=== PATIENT | female | born 1965 | race Caucasian/White ===

== ENCOUNTER 2019-04-29 08:42 | Inpatient (IN) | payer OTHER ==
[2019-04-24 11:20] VITALS: BMI 36.7
[2019-04-29] MEDS ORDERED: THROMBIN (BOVINE) 5,000 UNIT VIAL TP ONE ×2 (13:53→18:11)
[2019-04-29] MEDS ORDERED: HEPARIN NA (PORCINE) 5,000 UNITS/ML 1ML VIAL ONE (13:53)
[2019-04-29] MEDS ORDERED: PROPOFOL 20 ML ONE ×4 (15:58→16:00)
[2019-04-29] MEDS ORDERED: PROMETHAZINE HCL 25 MG/1 ML VIAL IVPB PRN (16:01)
[2019-04-29] MEDS ORDERED: DEXAMETHASONE SOD PHOSPHATE 4 MG/1 ML VIAL IVPUSH PRN (16:01)
[2019-04-29] MEDS ORDERED: PROMETHAZINE HCL 25 MG/1 ML VIAL IVPUSH PRN (16:01)
[2019-04-29] MEDS ORDERED: ONDANSETRON 4 MG/2 ML VIAL IVPUSH PRN ×2 (16:01→20:41)
[2019-04-29] MEDS ORDERED: MIDAZOLAM HCL 2 MG/2 ML SINGLE DOSE VIAL ONE ×2 (16:20)
[2019-04-29] MEDS ORDERED: fentaNYL CITRATE 250 MCG/5 ML VIAL ONE ×2 (16:20)
[2019-04-29] MEDS ORDERED: ONDANSETRON 4 MG/2 ML VIAL ONE (16:29)
[2019-04-29] MEDS ORDERED: DEXAMETHASONE SOD PHOSPHATE 4 MG/1 ML VIAL ONE (16:29)
[2019-04-29] MEDS ORDERED: TRANEXAMIC ACID 1000 MG/10 ML VIAL ONE (16:31)
[2019-04-29] MEDS ORDERED: ceFAZolin SODIUM 1 GM VIAL ONE ×3 (16:31→19:47)
[2019-04-29] MEDS ORDERED: VANCOMYCIN 1,000 MG VIAL (RESTRICTED TO ID ONLY) IVPB ONE (16:43)
[2019-04-29] MEDS ORDERED: ceFAZolin SODIUM 1 GM VIAL IVPB ONE ×2 (16:43→17:40)
[2019-04-29] MEDS ORDERED: MINERAL OIL/PETROLATUM,WHITE 3.5 GM TUBE ONE (17:04)
[2019-04-29] MEDS ORDERED: ROCURONIUM BROMIDE 50 MG/5 ML SYRINGE ONE (17:05)
[2019-04-29] MEDS ORDERED: NEOSTIGMINE METHYLSULFATE 0.5 MG/1 ML - 10 ML MDV ONE (17:45)
[2019-04-29] MEDS ORDERED: GELATIN, ABSORBABLE 100 EACH SPONGE TP ONE (18:12)
[2019-04-29] MEDS ORDERED: BUPIVACAINE LIPOSOME/PF (EXPAREL) 266 MG/20 ML VIAL ONE (18:52)
[2019-04-29] MEDS ORDERED: BUPIVACAINE HCL/PF 0.25% (2.5MG/ML) 10 ML VIAL ONE (18:56)
[2019-04-29] MEDS ORDERED: GLYCOPYRROLATE 0.2 MG/1 ML VIAL ONE ×4 (19:02→20:45)
--- NOTE | 2019-04-29 19:17 | OP ---
Operative Note - Note: Operative Date: 04/29/19 Pre-Operative Diagnosis: 1. 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 2. L4-S1 spinal stenosis with neurogenic claudication. 3. Multilevel axial lumbar segmental instability. Severity of illness: 4. Operation: 1. L4, L5, S1 bilateral laminectomies & osteotomies (facetectomies). 2. L4-L5, L5-S1 posterior lumbar interbody fusion. 3. L4-S1 posterior instrumentation. 4. L4-S1 posterolateral arthrodesis. 5. Bone allograft. 6. Bone autograft. 7. Bone marrow aspiration. 8. Complex wound closure (20cm) Implants: Cages: Fortilink Tetrafuse. L4-L5: 13mm. L5-S1: 11mm. Screws: Precision Spine Reform. Rods x 2, Cross-Link x 1. Post-Operative Diagnosis: Same as Pre-op Surgeon: Jarad Moise Microstrategy Developer: Juno Moise Anesthesiologist/STEEL PLATE PRINTER: Melissa Padilla Anesthesia: General Specimens Removed: L4-L5, L5-S1 discs Estimated Blood Loss (mls): 500 Blood Volume Replaced (mls): 250 (Cell Saver) Fluid Volume Replaced (mls): 2,700 (Crystalloid) Operative Report Dictated: Yes
--- NOTE | 2019-04-29 19:17 | PN ---
Progress Note (short form) - Note Progress Note: 54F s/p L4-L5, L5-S1 bilateral laminectomies; bilateral L4-L5, L5-S1 facetectomies; L4-L5, L5-S1 PLIF w/L4-S1 posterior instrumented spinal fusion POD #0. -Admit to ICU post-op. -NPO until flatus. -Pain control: NO NSAID's; OK to use WEB MARKETING MANAGER if needed; transition to oral analgesia post-op. -DVT PPx: -Mechanical only: JOSE MIGUEL's, SCD's. -Chemical: None. -Incentive spirometry q15 min. -[place] care; d/c when ambulating. -Post-op Ancef x 3 doses. -PT/OT/Rehab, OOB. -WBAT B/L LE. -No bending, lifting (>5 lbs), or twisting for 9-12 months. -Care per ICU & medical hospitalist teams. -Discharge planning: f/u 7-10 days after rehab discharge at [facility]; call for appointment; . -Will follow. Jarad Moise MD (Orthopaedic Surgery).
[2019-04-29] MEDS ORDERED: HYDROmorphone *PCA* 10MG/50ML DISP.SYRIN ONE (19:54)
[2019-04-29] MEDS ORDERED: BUPIVACAINE LIPOSOME/PF (EXPAREL) 266 MG/20 ML VIAL IJ ONE (20:20)
[2019-04-29] MEDS ORDERED: BUPIVACAINE HCL/PF 0.25% (2.5MG/ML) 10 ML VIAL IJ ONE (20:20)
[2019-04-29] MEDS ORDERED: ALBUTEROL SO4 8 GM HFA INHALER IH PRN (20:40)
[2019-04-29] MEDS ORDERED: diazePAM CARPU-JECT 10 MG/2 ML DISP.SYRIN IVPUSH PRN (20:41)
[2019-04-29] MEDS ORDERED: oxyCODONE HCL 5 MG TABLET PO PRN ×2 (20:41)
[2019-04-29] MEDS ORDERED: ACETAMINOPHEN INJECTION 100 ML IVPB ONE (20:53)
[2019-04-29] MEDS ORDERED: HYDROmorphone *PCA* 10MG/50ML DISP.SYRIN PCA ONE (21:10)
[2019-04-29] MEDS ORDERED: ACETAMINOPHEN 1000 MG/100 ML VIAL (NON FORMULARY) IVPB ONE (21:22)
--- NOTE | 2019-04-29 21:45 | OP ---
DATE OF OPERATION: 04/29/2019 SURGEON: Jarad Moise MD LENDING ACTIVITIES SUPERVISOR: Juno Moise MD PREOPERATIVE DIAGNOSIS: Disk prolapse at L4-5, L5-S1 with associated spinal stenosis and segmental instability. POSTOPERATIVE DIAGNOSIS: Disk prolapse at L4-5, L5-S1 with associated spinal stenosis and segmental instability. OPERATION PERFORMED: 1. Bilateral laminectomies, L4-5. 2. L4-5, L5 posterior lumbar interbody fusion. 3. Insertion of cage L4-5, L5-S1. 4. Posterolateral arthrodesis, L4, L5, S1. 5. Pedicle screw instrumentation, L4, L5, S1. 6. Use of biplanar fluoroscopy and intraoperative neuromonitoring. 7. Use of bone marrow aspirate concentrate. ANESTHESIA: General. ANTIBIOTICS GIVEN: Kefzol 2 g, vancomycin 1 g preoperative; Kefzol 1 g given intraoperatively. BLOOD LOSS: 500 mL; 200 mL of Cell Saver given back to patient. Please refer to [facility] for the rest of this dictation. Jarad Moise MD [id number]
[2019-04-29] MEDS: HYDROmorphone *PCA* 10MG/50ML DISP.SYRIN PCA SCH (23:30)
[2019-04-29] MEDS: LACTATED RINGERS SOLUTION 1,000 ML IV SCH (23:34)
--- NOTE | 2019-04-30 00:37 | CONSULT ---
Consultation: REQUESTING PROVIDER: CONSULT REQUEST: We have been asked to medically evaluate this patient for post op critical care management. HISTORY OF PRESENT ILLNESS: This is a 54 year old female with PMH significant for asthma,atherosclerosis, and DM. She has been brought to the ICU s/p L4-L5, L5-S1 bilateral laminectomies ; bilateral L4-L5, L5-S1 facetectomies; L4-L5, L5-S1 PLIF w/L4-S1 posterior instrumented spinal fusion POD #0. Patient is currently obtunded and unable to answer questions. REVIEW OF SYSTEMS: CONSTITUTIONAL: Absent: fever, chills, diaphoresis, generalized weakness, malaise, loss of appetite, weight change HEENT: Absent: rhinorrhea, nasal congestion, throat pain, throat swelling, difficulty swallowing, mouth swelling, ear pain, eye pain, visual changes CARDIOVASCULAR: Absent: chest pain, syncope, palpitations, irregular heart rate, lightheadedness , peripheral edema RESPIRATORY: Absent: cough, shortness of breath, dyspnea with exertion, orthopnea, wheezing, stridor, hemoptysis GASTROINTESTINAL: Absent: abdominal pain, abdominal distension, nausea, vomiting, diarrhea, constipation, melena, hematochezia GENITOURINARY: Absent: dysuria, frequency, urgency, hesitancy, hematuria, flank pain, genital pain MUSCULOSKELETAL: Absent: myalgia, arthralgia, joint swelling, back pain, neck pain SKIN: Absent: rash, itching, pallor HEMATOLOGIC/IMMUNOLOGIC: Absent: easy bleeding, easy bruising, lymphadenopathy, frequent infections ENDOCRINE: Absent: unexplained weight gain, unexplained weight loss, heat intolerance, cold intolerance NEUROLOGIC: Absent: headache, focal weakness or paresthesias, dizziness, unsteady gait, seizure, mental status changes, bladder or bowel incontinence PSYCHIATRIC: Absent: anxiety, depression, suicidal or homicidal ideation, hallucinations. PHYSICAL EXAMINATION Vital Signs - 24 hr 04/29/19 04/29/19 04/29/19 10:10 10:40 20:57 Temperature 98.5 F 98.6 F Pulse Rate 88 110 H Respiratory 16 16 Rate Blood Pressure 129/70 99/68 O2 Sat by Pulse 100 97 Oximetry (%) 04/29/19 04/29/19 04/29/19 21:15 21:30 21:45 Temperature Pulse Rate 97 H 103 H 99 H Respiratory 16 16 16 Rate Blood Pressure 94/56 L 90/50 L 105/54 L O2 Sat by Pulse 97 96 100 Oximetry (%) 04/29/19 04/29/19 04/29/19 21:59 22:00 22:15 Temperature 98.0 F Pulse Rate 95 H 105 H 96 H Respiratory 16 7 L 16 Rate Blood Pressure 111/81 111/81 111/80 O2 Sat by Pulse 100 100 98 Oximetry (%) 04/29/19 04/29/19 04/30/19 22:30 23:00 00:00 Temperature 98.1 F Pulse Rate 112 H 115 H 112 H Respiratory 8 L 8 L 10 Rate Blood Pressure 103/56 L 105/89 98/73 O2 Sat by Pulse 100 98 Oximetry (%) GENERAL: AOx0, drowsy, intermittently responsive to verbal stimulus HEAD: Normal with no signs of trauma. EYES: ANNMARIE, EOMI LUNGS: Clear B/L HEART: RRR ABDOMEN: Soft, nontender, not distended LOWER EXTREMITIES: 2+ pulses, no peripheral edema. NEUROLOGICAL: AOx0, drowsy SKIN: Warm, dry, normal turgor, no rashes or lesions noted. Laboratory Results - last 24 hr 04/29/19 04/29/19 04/29/19 08:56 08:56 11:14 POC Glucometer 101 Urine HCG, Qual Negative Blood Type O NEGATIVE Antibody Screen Negative 04/29/19 11:50 POC Glucometer Urine HCG, Qual Blood Type O NEGATIVE Antibody Screen Active Medications Generic Name Dose Route Start Last Admin Trade Name Freq PRN Reason Stop Dose Admin Acetaminophen 1,000 mg 04/30/19 03:00 Ofirmev Injection - IVPB 04/30/19 19:01 Q8H ANDREW Albuterol Sulfate 2 puff 04/29/19 20:40 Ventolin Hfa Inhaler - IH Q4H PRN ASTHMA Cefazolin Sodium/Dextrose 2 gm 04/30/19 01:00 Ancef 2 Gm Premixed Ivpb - IVPB 04/30/19 13:01 Q6H ANDREW Dexamethasone Sodium Phosphate 4 mg 04/29/19 16:01 Decadron Injection - IVPUSH ONCE PRN NAUSEA AND/OR VOMITING Diphenhydramine HCl 12.5 mg 04/29/19 16:01 Benadryl Injection - IVPUSH ONCE PRN FOR ITCHING Fentanyl 50 mcg 04/29/19 16:01 Sublimaze Injection - IVPUSH [id number] PRN PAIN-PACU ORDER X 4 DOSES ONLY Fluoxetine HCl 20 mg 04/30/19 10:00 Prozac - PO DAILY [facility] Hydromorphone HCl 10 mg 04/29/19 16:15 04/29/19 23:30 Hydromorphone 10 Mg/50 Ml-Ns PRODUCTION ASSEMBLY OPERATOR 05/06/19 16:01 Not Given PRODUCTION ASSEMBLY OPERATOR [facility] Protocol Lactated Ringer's 1,000 mls @ 125 mls/hr 04/29/19 20:45 04/29/19 23:34 Lactated Ringers Solution IV 125 mls/hr ASDIR [facility] Administration Liraglutide 1.8 mg 04/30/19 07:00 Victoza - SQ DAILY@0700 [facility] Metformin HCl 500 mg 04/30/19 07:00 Glucophage - PO BIDAC [facility] Ondansetron HCl 4 mg 04/29/19 16:01 Zofran Injection IVPUSH Q4H PRN NAUSEA AND/OR VOMITING Oxycodone HCl 5 mg 04/29/19 20:41 Roxicodone - PO Q4H PRN PAIN LEVEL 1-5 Oxycodone HCl 10 mg 04/29/19 20:41 Roxicodone - PO Q4H PRN PAIN LEVEL 6-10 Promethazine HCl 12.5 mg 04/29/19 16:01 Phenergan Injection - IVPUSH Q6H PRN NAUSEA-FOR RESCUE AFTER 15 MIN Promethazine HCl 12.5 mg 04/29/19 16:01 Phenergan Injection - IVPB Q6H PRN NAUSEA AND/OR VOMITING Verapamil HCl 40 mg 04/30/19 10:00 Calan - PO DAILY [facility] ASSESSMENT/PLAN: 54F s/p L4-L5, L5-S1 bilateral laminectomies; bilateral L4-L5, L5-S1 facetectomies; L4-L5, L5-S1 PLIF w/L4-S1 posterior instrumented spinal fusion POD #0. #Neuro - AOx0, intermittently responsive to verbal stimuli, sluggish pupillary response , suspecting residual anesthetic effect - Holding Dilaudid PRODUCTION ASSEMBLY OPERATOR until improved mental status; NO NSAID's. - WBAT B/L LE. - No heavy lifting (>5 lbs), bending or twisting x 6 months post op. - B/L UE & LE NV checks. - PT/OT/Rehab, OOB. -WBAT B/L LE. #Cardio - Monitor for signs of bradycardia, tachycadia #Pulm - Currently on 5L NC, may be downgraded as respiratory status allows, maintain O2 saturation >90% - encourage incentive spirometry #GI - NPO until flatus - Advance diet as tolerated #ID - 3 x Ancef post-op - Currently afebrile #Endo - Hx of DM: monitor BG and start Novolog SS if required #Prophylaxis - Mechanical only: JOSE MIGUEL's, SCD's. #FEN - LR @125mls hr - NPO until flatus #Disposition - ICU monitoring - We will continue to follow the patient. Thank you for this consultative opportunity. Visit type - Emergency Visit Emergency Visit: Yes ED Registration Date: 04/29/19 Care time: The patient presented to the Emergency Department on the above date and was hospitalized for further evaluation of their emergent condition. - New Patient This patient is new to me today: Yes Date on this admission: 05/08/19 - Critical Care Critical Care patient: Yes Total Critical Care Time (in minutes): 39 Critical Care Statement: The care of this patient involved high complexity decision making to prevent further life threatening deterioration of the patient 's condition and/or to evaluate & treat vital organ system(s) failure or risk of failure. ATTENDING PHYSICIAN STATEMENT I saw and evaluated the patient. I reviewed the resident's note and discussed the case with the resident. I agree with the resident's findings and plan as documented. SUBJECTIVE: OBJECTIVE: ASSESSMENT AND PLAN:
[2019-04-30] MEDS: ceFAZolin 2 GRAM PREMIX BAG IVPB SCH ×3 (00:40→14:16)
[2019-04-30] MEDS: ACETAMINOPHEN 1000 MG/100 ML VIAL (NON FORMULARY) IVPB SCH ×3 (02:53→19:50)
[2019-04-30 03:04] LABS: ARTERIAL BLD GAS O2 SATURATION 96.4 % (95-98); ARTERIAL BLOOD GAS BASE EXCESS -0.3 meq/l (-2-2); ARTERIAL BLOOD GAS PCO2 51.6 mmHg (35-45); ARTERIAL BLOOD GAS PO2 96.9 mmHg (80-100); ARTERIAL BLOOD GAS pH 7.32 (7.35-7.45)
[2019-04-30 03:08] LABS: ALLENS TEST POSITIVE
[2019-04-30 06:24] LABS: HEMATOCRIT 27.6 % (32.4-45.2); HEMOGLOBIN 9.1 GM/dL (10.7-15.3); MCH 27.9 pg (25.7-33.7); MCHC 33.1 g/dl (32.0-36.0); MEAN CELL VOLUME 84.2 fl (80-96); MEAN PLT VOLUME 7.7 fl (7.5-11.1); PLATELET COUNT 369 K/MM3 (134-434); RBC 3.28 M/mm3 (3.60-5.2); RDW 16.3 % (11.6-15.6); WHITE BLOOD COUNT 14.7 K/mm3 (4.0-10.0)
[2019-04-30] MEDS: INSULIN SLIDING SCALE (NOVOLOG) 1 VIAL SQ SCH ×4 (06:31→21:40)
[2019-04-30 06:50] LABS: BLOOD UREA NITROGEN 11.6 mg/dL (7-18); CALCIUM 8.6 mg/dL (8.5-10.1); CREATININE 0.7 mg/dL (0.55-1.3); POTASSIUM 4.5 mmol/L (3.5-5.1)
[2019-04-30] MEDS ORDERED: LIRAGLUTIDE 0.6 MG/0.1 ML PEN.INJCTR SQ SCH (07:00)
[2019-04-30] MEDS ORDERED: metFORMIN HCL 500 MG TABLET (FP) PO SCH (07:00)
--- NOTE | 2019-04-30 07:49 | PN ---
Physical Exam: SUBJECTIVE: Patient seen and examined. Complains of 10/10 back pain but has not been using the THREAD WINDER pump every 6 minutes. She has not passed gas yet. Denies any chest pain, SOB, or other complaints. She has been using the incentive spirometer. POD#1. OBJECTIVE: Vital Signs Period Temp Pulse Resp BP Sys/Ayoub Pulse Ox Last 24 Hr 98.0 F-98.8 F 88-115 7-16 90-132/50-96 91-100 GENERAL: The patient is awake, alert, and fully oriented, no acute distress HEAD: Normal with no signs of trauma. EYES: EOMI, no scleral icterus ENT: moist mucous membranes NECK: Trachea midline LUNGS: Breath sounds equal, clear to auscultation bilaterally, no wheezes, no crackles, no accessory muscle use. HEART: Regular rate and rhythm, S1, S2 without murmur, rub or gallop. ABDOMEN: Soft, nontender, nondistended, normoactive bowel sounds, no guarding, no rebound, no hepatosplenomegaly, no masses. EXTREMITIES: 2+ pulses, warm, well-perfused, no edema. NEUROLOGICAL: Normal speech, gait not observed. Sensation intact throughout. PSYCH: Normal mood, normal affect. SKIN: Warm, dry Laboratory Results - last 24 hr 04/29/19 04/29/19 04/29/19 08:56 08:56 11:14 WBC RBC Hgb Hct MCV MCH MCHC RDW Plt Count MPV Puncture Site ABG pH ABG pCO2 at Pt Temp ABG pO2 at Pt Temp ABG HCO3 ABG O2 Sat (Measured) ABG O2 Content ABG Base Excess Ricardo Test O2 Delivery Device Oxygen Flow Rate Sodium Potassium Chloride Carbon Dioxide Anion Gap BUN Creatinine Est GFR (CKD-EPI)AfAm Est GFR (CKD-EPI)NonAf POC Glucometer 101 Random Glucose Calcium Urine HCG, Qual Negative Blood Type O NEGATIVE Antibody Screen Negative 04/29/19 04/30/19 04/30/19 11:50 02:50 05:40 WBC 14.7 H RBC 3.28 L Hgb 9.1 L Hct 27.6 L MCV 84.2 MCH 27.9 MCHC 33.1 RDW 16.3 H Plt Count 369 MPV 7.7 Puncture Site Left radial ABG pH 7.32 L ABG pCO2 at Pt Temp 51.6 H ABG pO2 at Pt Temp 96.9 ABG HCO3 25.6 ABG O2 Sat (Measured) 96.4 ABG O2 Content 12.8 ABG Base Excess -0.3 Ricardo Test Positive O2 Delivery Device Nasal Oxygen Flow Rate 5l Sodium Potassium Chloride Carbon Dioxide Anion Gap BUN Creatinine Est GFR (CKD-EPI)AfAm Est GFR (CKD-EPI)NonAf POC Glucometer Random Glucose Calcium Urine HCG, Qual Blood Type O NEGATIVE Antibody Screen 04/30/19 04/30/19 05:40 05:43 WBC RBC Hgb Hct MCV MCH MCHC RDW Plt Count MPV Puncture Site ABG pH ABG pCO2 at Pt Temp ABG pO2 at Pt Temp ABG HCO3 ABG O2 Sat (Measured) ABG O2 Content ABG Base Excess Ricardo Test O2 Delivery Device Oxygen Flow Rate Sodium 140 Potassium 4.5 Chloride 104 Carbon Dioxide 28 Anion Gap 9 BUN 11.6 Creatinine 0.7 Est GFR (CKD-EPI)AfAm 113.84 Est GFR (CKD-EPI)NonAf 98.23 POC Glucometer 115 Random Glucose 106 Calcium 8.6 Urine HCG, Qual Blood Type Antibody Screen Active Medications Generic Name Dose Route Start Last Admin Trade Name Freq PRN Reason Stop Dose Admin Acetaminophen 1,000 mg 04/30/19 03:00 04/30/19 02:53 Ofirmev Injection - IVPB 04/30/19 19:01 1,000 mg Q8H ANDREW Administration Albuterol Sulfate 2 puff 04/29/19 20:40 Ventolin Hfa Inhaler - IH Q4H PRN ASTHMA Cefazolin Sodium/Dextrose 2 gm 04/30/19 01:00 04/30/19 00:40 Ancef 2 Gm Premixed Ivpb - IVPB 04/30/19 13:01 2 gm Q6H ANDREW Administration Dexamethasone Sodium Phosphate 4 mg 04/29/19 16:01 Decadron Injection - IVPUSH ONCE PRN NAUSEA AND/OR VOMITING Diphenhydramine HCl 12.5 mg 04/29/19 16:01 Benadryl Injection - IVPUSH ONCE PRN FOR ITCHING Fentanyl 50 mcg 04/29/19 16:01 Sublimaze Injection - IVPUSH [id number] PRN PAIN-PACU ORDER X 4 DOSES ONLY Fluoxetine HCl 20 mg 04/30/19 10:00 Prozac - PO DAILY ANDREW Hydromorphone HCl 10 mg 04/29/19 16:15 04/29/19 23:30 Hydromorphone 10 Mg/50 Ml-Ns THREAD WINDER 05/06/19 16:01 Not Given THREAD WINDER [facility] Protocol Lactated Ringer's 1,000 mls @ 125 mls/hr 04/29/19 20:45 04/29/19 23:34 Lactated Ringers Solution IV 125 mls/hr ASDIR [facility] Administration Insulin Aspart 1 vial 04/30/19 07:00 04/30/19 06:31 Novolog Vial Sliding Scale - SQ Not Given ACHS [facility] Protocol Liraglutide 1.8 mg 04/30/19 07:00 Victoza - SQ DAILY@0700 [facility] Metformin HCl 500 mg 04/30/19 07:00 Glucophage - PO BIDAC [facility] Ondansetron HCl 4 mg 04/29/19 16:01 Zofran Injection IVPUSH Q4H PRN NAUSEA AND/OR VOMITING Oxycodone HCl 5 mg 04/29/19 20:41 Roxicodone - PO Q4H PRN PAIN LEVEL 1-5 Oxycodone HCl 10 mg 04/29/19 20:41 Roxicodone - PO Q4H PRN PAIN LEVEL 6-10 Promethazine HCl 12.5 mg 04/29/19 16:01 Phenergan Injection - IVPUSH Q6H PRN NAUSEA-FOR RESCUE AFTER 15 MIN Promethazine HCl 12.5 mg 04/29/19 16:01 Phenergan Injection - IVPB Q6H PRN NAUSEA AND/OR VOMITING Verapamil HCl 40 mg 04/30/19 10:00 Calan - PO DAILY [facility] ASSESSMENT/PLAN: 54 y/o/f with PMHx of HTN, NIDDM, Depression, PTSD, and GERD here s/p L4-L5, L5- S1 bilateral laminectomies; bilateral L4-L5, L5-S1 facetectomies; L4-L5, L5-S1 PLIF w/L4-S1 posterior instrumented spinal fusion POD #1. #Neuro - AAOx3 - Dilaudid THREAD WINDER for pain control. NO NSAID's. - Continue home Prozac for depression - WBAT B/L LE. - No heavy lifting (>5 lbs), bending or twisting x6 months post op. - B/L UE & LE NV checks. - PT/OT/Rehab, OOB. -WBAT B/L LE. #Cardio - Monitor for signs of bradycardia, tachycadia #Pulm - Maintain O2 saturation >90% - encourage incentive spirometry #GI - NPO until flatus - Advance diet as tolerated #ID - 3 x Ancef post-op - Currently afebrile. WBC at 14.7. monitor #Endo - Hx of DM - BGMs - ISS #Prophylaxis - Mechanical only: JOSE MIGUEL's, SCD's. #FEN - LR @125mls/hr - NPO until flatus #Disposition - Continue ICU monitoring until cleared by surgery for transfer to floors Visit type - Emergency Visit Emergency Visit: No - New Patient This patient is new to me today: Yes Date on this admission: 04/30/19 - Critical Care Critical Care patient: Yes Total Critical Care Time (in minutes): 36 Critical Care Statement: The care of this patient involved high complexity decision making to prevent further life threatening deterioration of the patient 's condition and/or to evaluate & treat vital organ system(s) failure or risk of failure. ATTENDING PHYSICIAN STATEMENT I saw and evaluated the patient. I reviewed the resident's note and discussed the case with the resident. I agree with the resident's findings and plan as documented. SUBJECTIVE: OBJECTIVE: ASSESSMENT AND PLAN:
--- NOTE | 2019-04-30 08:11 | HP ---
CHIEF COMPLAINT: Pt is s/p L4-L5, L5-S1 bilateral laminectomies; bilateral L4- L5, L5-S1 facetectomies; L4-L5, L5-S1 PLIF w/L4-S1 posterior instrumented spinal fusion POD #0. HISTORY OF PRESENT ILLNESS: Pt is a 54 y/o F with a significant past medical history of HTN, NIDDM, Depression, PTSD, and GERD who is POD#1 L4-L5, L5-S1 bilateral laminectomies; bilateral L4-L5, L5-S1 facetectomies; L4-L5, L5-S1 PLIF w/L4-S1 posterior instrumented spinal fusion. Pt states she has been suffering from lower back pain as well as neuropathic-like pain for many years. pt states that before her surgery, she experienced a "heat" sensation radiating down to her left leg as well as a sharp shooting pain in both of her lower extremities. Also endorses numbness and tingling in both legs. Denies any urinary or bowel problems. Denies chest pain, shortness of breath, headache, dizziness or any other symptoms. SurgHx: CAYLA w/ bilateral salpingectomy and b/l oophrectomy, tonsilectomy. Social History: Former smoker. Smoked 1 pack per weekx48 years. Quit 6 years ago. Denies Alcohol or Drug use. NKDA FamHx- Father NC. Mother-Lung Cancer. HOME MEDICATIONS: Home Medications Medication Instructions Recorded Aspirin 81 mg PO DAILY 04/24/19 Cyclobenzaprine HCl 10 mg PO DAILY 04/24/19 Fluoxetine HCl [Prozac] 20 mg PO DAILY 04/24/19 Gabapentin 100 mg PO TID 04/24/19 Liraglutide [Victoza -] 1.8 mg SQ DAILY 04/24/19 Omeprazole 20 mg PO DAILY 04/24/19 Verapamil HCl 40 mg PO DAILY 04/24/19 metFORMIN HCL [Metformin HCl] 500 mg PO BID 04/24/19 Albuterol Sulfate Inhaler - 2 inh PO Q4H PRN 04/29/19 [Ventolin Hfa Inhaler -] REVIEW OF SYSTEMS CONSTITUTIONAL: Absent: fever, chills, diaphoresis, generalized weakness, malaise, loss of appetite, weight change HEENT: Absent: rhinorrhea, nasal congestion, throat pain, throat swelling, difficulty swallowing, mouth swelling, ear pain, eye pain, visual changes CARDIOVASCULAR: Absent: chest pain, syncope, palpitations, irregular heart rate, lightheadedness , peripheral edema RESPIRATORY: Absent: cough, shortness of breath, dyspnea with exertion, orthopnea, wheezing, stridor, hemoptysis GASTROINTESTINAL: Absent: abdominal pain, abdominal distension, nausea, vomiting, diarrhea, constipation, melena, hematochezia GENITOURINARY: Absent: dysuria, frequency, urgency, hesitancy, hematuria, flank pain, genital pain MUSCULOSKELETAL: Absent: myalgia, arthralgia, joint swelling, back pain, neck pain SKIN: Absent: rash, itching, pallor HEMATOLOGIC/IMMUNOLOGIC: Absent: easy bleeding, easy bruising, lymphadenopathy, frequent infections ENDOCRINE: Absent: unexplained weight gain, unexplained weight loss, heat intolerance, cold intolerance NEUROLOGIC: PRESENT: paresthesias both lower extremities PSYCHIATRIC: Absent: anxiety, depression, suicidal or homicidal ideation, hallucinations. PHYSICAL EXAMINATION Vital Signs - 24 hr 04/29/19 04/29/19 04/29/19 10:10 10:40 20:57 Temperature 98.5 F 98.6 F Pulse Rate 88 110 H Respiratory 16 16 Rate Blood Pressure 129/70 99/68 O2 Sat by Pulse 100 97 Oximetry (%) 04/29/19 04/29/19 04/29/19 21:15 21:30 21:45 Temperature Pulse Rate 97 H 103 H 99 H Respiratory 16 16 16 Rate Blood Pressure 94/56 L 90/50 L 105/54 L O2 Sat by Pulse 97 96 100 Oximetry (%) 04/29/19 04/29/19 04/29/19 21:59 22:00 22:15 Temperature 98.0 F Pulse Rate 95 H 105 H 96 H Respiratory 16 7 L 16 Rate Blood Pressure 111/81 111/81 111/80 O2 Sat by Pulse 100 100 98 Oximetry (%) 04/29/19 04/29/19 04/29/19 22:30 23:00 23:30 Temperature 98.1 F Pulse Rate 112 H 111 H 107 H Respiratory 8 L 7 L 9 L Rate Blood Pressure 103/56 L 105/89 91/50 L O2 Sat by Pulse 98 98 93 L Oximetry (%) 04/30/19 04/30/19 04/30/19 00:00 00:30 01:00 Temperature Pulse Rate 108 H 106 H 115 H Respiratory 8 L 8 L 11 Rate Blood Pressure 98/73 118/96 128/77 O2 Sat by Pulse 96 97 Oximetry (%) 04/30/19 04/30/19 04/30/19 02:00 04:00 06:00 Temperature 98.8 F Pulse Rate 107 H 89 92 H Respiratory 8 L 10 12 Rate Blood Pressure 132/89 122/80 123/74 O2 Sat by Pulse 91 L Oximetry (%) 04/30/19 04/30/19 07:55 08:00 Temperature Pulse Rate 99 H Respiratory 17 Rate Blood Pressure 112/68 O2 Sat by Pulse 100 Oximetry (%) GENERAL: NAD AAOx3 HEAD: Normal with no signs of trauma. EYES:EOMI Sclera Clear EARS, NOSE, THROAT: MMM NECK: Normal range of motion, supple without lymphadenopathy, JVD, or masses. LUNGS: CTA b/l HEART: RRR S1S2 ABDOMEN: Soft, NDNT LOWER EXTREMITIES:Plantar/Dorsiflexion 2+ bilateral. Moves all 4 extremities spontaneously. Strength 4/5 bilateral lower extremities. Upper extremities Abduction and Adduction 5/5. NEUROLOGICAL: Cranial nerves II-XII intact. Normal speech PSYCHIATRIC: Cooperative. Good eye contact. Appropriate mood and affect. SKIN: Back dressing in place with Davol drain w/ serosanguinous fluid. Laboratory Results - last 24 hr 04/29/19 04/29/19 04/29/19 08:56 08:56 11:14 WBC RBC Hgb Hct MCV MCH MCHC RDW Plt Count MPV Puncture Site ABG pH ABG pCO2 at Pt Temp ABG pO2 at Pt Temp ABG HCO3 ABG O2 Sat (Measured) ABG O2 Content ABG Base Excess Ricardo Test O2 Delivery Device Oxygen Flow Rate Sodium Potassium Chloride Carbon Dioxide Anion Gap BUN Creatinine Est GFR (CKD-EPI)AfAm Est GFR (CKD-EPI)NonAf POC Glucometer 101 Random Glucose Calcium Urine HCG, Qual Negative Blood Type O NEGATIVE Antibody Screen Negative 04/29/19 04/30/19 04/30/19 11:50 02:50 05:40 WBC 14.7 H RBC 3.28 L Hgb 9.1 L Hct 27.6 L MCV 84.2 MCH 27.9 MCHC 33.1 RDW 16.3 H Plt Count 369 MPV 7.7 Puncture Site Left radial ABG pH 7.32 L ABG pCO2 at Pt Temp 51.6 H ABG pO2 at Pt Temp 96.9 ABG HCO3 25.6 ABG O2 Sat (Measured) 96.4 ABG O2 Content 12.8 ABG Base Excess -0.3 Ricardo Test Positive O2 Delivery Device Nasal Oxygen Flow Rate 5l Sodium Potassium Chloride Carbon Dioxide Anion Gap BUN Creatinine Est GFR (CKD-EPI)AfAm Est GFR (CKD-EPI)NonAf POC Glucometer Random Glucose Calcium Urine HCG, Qual Blood Type O NEGATIVE Antibody Screen 04/30/19 04/30/19 05:40 05:43 WBC RBC Hgb Hct MCV MCH MCHC RDW Plt Count MPV Puncture Site ABG pH ABG pCO2 at Pt Temp ABG pO2 at Pt Temp ABG HCO3 ABG O2 Sat (Measured) ABG O2 Content ABG Base Excess Ricardo Test O2 Delivery Device Oxygen Flow Rate Sodium 140 Potassium 4.5 Chloride 104 Carbon Dioxide 28 Anion Gap 9 BUN 11.6 Creatinine 0.7 Est GFR (CKD-EPI)AfAm 113.84 Est GFR (CKD-EPI)NonAf 98.23 POC Glucometer 115 Random Glucose 106 Calcium 8.6 Urine HCG, Qual Blood Type Antibody Screen ASSESSMENT/PLAN: Pt is a 54 y/o F with a significant past medical history of HTN, NIDDM, Depression, PTSD, and GERD who is POD#1 L4-L5, L5-S1 bilateral laminectomies; bilateral L4-L5, L5-S1 facetectomies; L4-L5, L5-S1 PLIF w/L4-S1 posterior instrumented spinal fusion # POD#1 L4-L5, L5-S1 bilateral laminectomies; bilateral L4-L5, L5-S1 facetectomies; L4-L5, L5-S1 PLIF w/L4-S1 posterior instrumented spinal fusion Dilaudid [employer]. NO NSAID's. - WBAT B/L LE. - No heavy lifting (>5 lbs), bending or twisting x 6 months post op. - B/L UE & LE NV checks. - PT/OT/Rehab, OOB -WBAT B/L LE. - Currently on 5L NC, may be downgraded as respiratory status allows, maintain O2 saturation >90% - encourage incentive spirometry - NPO until flatus - Advance diet as tolerated - 3 x Ancef post-op - Currently afebrile # DM: monitor BG and start Novolog SS if required Hold Metformin #HTN Continue Verapamil #PTSD/Depression -Resume Prozac #GERD Protnix 40 daily #DVT ppx: Mechanical only: JOSE MIGUEL's, SCD's. #FEN - LR @125mls hr - NPO until flatus #Dispo - ICU monitoring Visit type - Emergency Visit Emergency Visit: No - New Patient This patient is new to me today: Yes Date on this admission: 04/30/19 - Critical Care Critical Care patient: Yes Total Critical Care Time (in minutes): 35 Critical Care Statement: The care of this patient involved high complexity decision making to prevent further life threatening deterioration of the patient 's condition and/or to evaluate & treat vital organ system(s) failure or risk of failure. ATTENDING PHYSICIAN STATEMENT I saw and evaluated the patient. I reviewed the resident's note and discussed the case with the resident. I agree with the resident's findings and plan as documented. SUBJECTIVE: OBJECTIVE: ASSESSMENT AND PLAN:
[2019-04-30] MEDS ORDERED: PT OWN MED DRAWER 7, Y5N ONE ×2 (09:06→09:12)
[2019-04-30] MEDS: VERAPAMIL HCL 40 MG TABLET (FP) PO SCH (09:07)
[2019-04-30] MEDS: FLUoxetine HCL 20 MG CAPSULE (FP) PO SCH (09:07)
[2019-04-30] MEDS: LACTATED RINGERS SOLUTION 1,000 ML IV SCH ×3 (09:09→18:31)
--- NOTE | 2019-04-30 11:29 | PN ---
Teaching Attending Note Name of Resident: Cari Miller ATTENDING PHYSICIAN STATEMENT I saw and evaluated the patient. I reviewed the resident's note and discussed the case with the resident. I agree with the resident's findings and plan as documented. SUBJECTIVE: Patient seen and examined in the ICU. Awake and alert. Reported some RLE numbness that has now resolved. No CP or SOB. On Dilaudid LOCOMOTIVE ELECTRICIAN, pain still not adequately controlled. Intake & Output 04/27/19 04/28/19 04/29/19 04/30/19 23:59 23:59 23:59 23:59 Intake Total 3350 1580 Output Total 700 775 Balance 2650 805 Last Vital Signs Temp Pulse Resp BP Pulse Ox 99.3 F 83 14 100/49 L 100 04/30/19 09:59 04/30/19 10:00 04/30/19 10:00 04/30/19 10:00 04/30/19 10:00 Active Medications Acetaminophen (Ofirmev Injection -) 1,000 mg IVPB Q8H [facility] Stop: 04/30/19 19:01 Last Admin: 04/30/19 10:28 Dose: 1,000 mg Albuterol Sulfate (Ventolin Hfa Inhaler -) 2 puff IH Q4H PRN PRN Reason: ASTHMA Cefazolin Sodium/Dextrose (Ancef 2 Gm Premixed Ivpb -) 2 gm IVPB Q6H [facility] Stop: 04/30/19 13:01 Last Admin: 04/30/19 09:00 Dose: 2 gm Dexamethasone Sodium Phosphate (Decadron Injection -) 4 mg IVPUSH ONCE PRN PRN Reason: NAUSEA AND/OR VOMITING Diphenhydramine HCl (Benadryl Injection -) 12.5 mg IVPUSH ONCE PRN PRN Reason: FOR ITCHING Fentanyl (Sublimaze Injection -) 50 mcg IVPUSH [id number] PRN PRN Reason: PAIN-PACU ORDER X 4 DOSES ONLY Fluoxetine HCl (Prozac -) 20 mg PO DAILY [facility] Last Admin: 04/30/19 09:07 Dose: 20 mg Hydromorphone HCl (Hydromorphone 10 Mg/50 Ml-Ns) 10 mg LOCOMOTIVE ELECTRICIAN LOCOMOTIVE ELECTRICIAN [facility]; Protocol Stop: 05/06/19 16:01 Last Admin: 04/29/19 23:30 Dose: Not Given Lactated Ringer's (Lactated Ringers Solution) 1,000 mls @ 125 mls/hr IV ASDIR [facility] Last Admin: 04/30/19 09:09 Dose: 125 mls/hr Insulin Aspart (Novolog Vial Sliding Scale -) 1 vial SQ ACHS [facility]; Protocol Last Admin: 04/30/19 06:31 Dose: Not Given Ondansetron HCl (Zofran Injection) 4 mg IVPUSH Q4H PRN PRN Reason: NAUSEA AND/OR VOMITING Oxycodone HCl (Roxicodone -) 5 mg PO Q4H PRN PRN Reason: PAIN LEVEL 1-5 Oxycodone HCl (Roxicodone -) 10 mg PO Q4H PRN PRN Reason: PAIN LEVEL 6-10 Promethazine HCl (Phenergan Injection -) 12.5 mg IVPB Q6H PRN PRN Reason: NAUSEA AND/OR VOMITING Verapamil HCl (Calan -) 40 mg PO DAILY [facility] Last Admin: 04/30/19 09:07 Dose: 40 mg GENERAL: Awake and alert and oriented, mildly uncomfortable due to pain HEAD: Normal with no signs of trauma. EYES: ANNMARIE, EOMI LUNGS: Clear B/L HEART: RRR ABDOMEN: Soft, nontender, not distended LOWER EXTREMITIES: 2+ pulses, no peripheral edema. NEUROLOGICAL: AAO, non-focal SKIN: Warm, dry, normal turgor, no rashes or lesions noted. Laboratory Results - last 24 hr 04/29/19 04/30/19 04/30/19 11:50 02:50 05:40 WBC 14.7 H RBC 3.28 L Hgb 9.1 L Hct 27.6 L MCV 84.2 MCH 27.9 MCHC 33.1 RDW 16.3 H Plt Count 369 MPV 7.7 Puncture Site Left radial ABG pH 7.32 L ABG pCO2 at Pt Temp 51.6 H ABG pO2 at Pt Temp 96.9 ABG HCO3 25.6 ABG O2 Sat (Measured) 96.4 ABG O2 Content 12.8 ABG Base Excess -0.3 Ricardo Test Positive O2 Delivery Device Nasal Oxygen Flow Rate 5l Sodium Potassium Chloride Carbon Dioxide Anion Gap BUN Creatinine Est GFR (CKD-EPI)AfAm Est GFR (CKD-EPI)NonAf POC Glucometer Random Glucose Calcium Blood Type O NEGATIVE 04/30/19 04/30/19 05:40 05:43 WBC RBC Hgb Hct MCV MCH MCHC RDW Plt Count MPV Puncture Site ABG pH ABG pCO2 at Pt Temp ABG pO2 at Pt Temp ABG HCO3 ABG O2 Sat (Measured) ABG O2 Content ABG Base Excess Ricardo Test O2 Delivery Device Oxygen Flow Rate Sodium 140 Potassium 4.5 Chloride 104 Carbon Dioxide 28 Anion Gap 9 BUN 11.6 Creatinine 0.7 Est GFR (CKD-EPI)AfAm 113.84 Est GFR (CKD-EPI)NonAf 98.23 POC Glucometer 115 Random Glucose 106 Calcium 8.6 Blood Type ASSESSMENT/PLAN: POD #1 L4-L5, L5-S1 bilateral laminectomies; bilateral L4-L5, L5-S1 facetectomies; L4-L5, L5-S1 PLIF w/L4-S1 posterior instrumented spinal fusion DM To D/W anesthesia pain control O2 as needed VTE prophylaxis PO as tolerated Activity per Surgery Post Op Ancef noted Encourage Incentive Spirometry Follow Neuro exam Floor when cleared with surgery Dr Ford
--- NOTE | 2019-04-30 13:10 | PN ---
Progress Note (short form) - Note Progress Note: 54F POD1 s/p L4-S1 posterior interbody fusion under GA-ETT with dilaudid [employer] for post operative pain. Pt states that pain is moderately controlled, partially alleviated by current regimen. Adding oral valium on a schedule. Continue Tylenol and dilaudid IV [employer] at this time.
[2019-04-30] MEDS: diazePAM 5 MG TABLET PO SCH (14:20)
--- NOTE | 2019-04-30 18:20 | PN ---
Teaching Attending Note Name of Resident: Noah Trejo ATTENDING PHYSICIAN STATEMENT I saw and evaluated the patient. I reviewed the resident's note and discussed the case with the resident. I agree with the resident's findings and plan as documented. SUBJECTIVE: This is a 54 year old woman with a history of HTN, type 2 DM, depression, PTSD, GERD, lumbar spinal stenosis with radiculopathy and neurogenic claudication who presented to the hospital yesterday for lumbar spine surgery. OBJECTIVE: Vital Signs Period Temp Pulse Resp BP Sys/Ayoub Pulse Ox Last 24 Hr 97.3 F-99.3 F 83-115 7-22 90-142/49-96 91-100 HEART: S12S2, RRR LUNGS: Clear ABDOMEN: Obese, soft, non-tender, non-distended, normal BS EXTREMITIES: No edema Laboratory Results - last 24 hr 04/30/19 04/30/19 04/30/19 02:50 05:40 05:40 WBC 14.7 H RBC 3.28 L Hgb 9.1 L Hct 27.6 L MCV 84.2 MCH 27.9 MCHC 33.1 RDW 16.3 H Plt Count 369 MPV 7.7 Puncture Site Left radial ABG pH 7.32 L ABG pCO2 at Pt Temp 51.6 H ABG pO2 at Pt Temp 96.9 ABG HCO3 25.6 ABG O2 Sat (Measured) 96.4 ABG O2 Content 12.8 ABG Base Excess -0.3 Ricardo Test Positive O2 Delivery Device Nasal Oxygen Flow Rate 5l Sodium 140 Potassium 4.5 Chloride 104 Carbon Dioxide 28 Anion Gap 9 BUN 11.6 Creatinine 0.7 Est GFR (CKD-EPI)AfAm 113.84 Est GFR (CKD-EPI)NonAf 98.23 POC Glucometer Random Glucose 106 Calcium 8.6 04/30/19 04/30/19 04/30/19 05:43 12:05 17:14 WBC RBC Hgb Hct MCV MCH MCHC RDW Plt Count MPV Puncture Site ABG pH ABG pCO2 at Pt Temp ABG pO2 at Pt Temp ABG HCO3 ABG O2 Sat (Measured) ABG O2 Content ABG Base Excess Ricardo Test O2 Delivery Device Oxygen Flow Rate Sodium Potassium Chloride Carbon Dioxide Anion Gap BUN Creatinine Est GFR (CKD-EPI)AfAm Est GFR (CKD-EPI)NonAf POC Glucometer 115 100 110 Random Glucose Calcium Current Medications Generic Name Dose Route Start Last Admin Trade Name Freq PRN Reason Stop Dose Admin Acetaminophen 1,000 mg 04/30/19 03:00 04/30/19 10:28 Ofirmev Injection - IVPB 04/30/19 19:01 1,000 mg Q8H ANDREW Administration Albuterol Sulfate 2 puff 04/29/19 20:40 Ventolin Hfa Inhaler - IH Q4H PRN ASTHMA Dexamethasone Sodium Phosphate 4 mg 04/29/19 16:01 Decadron Injection - IVPUSH ONCE PRN NAUSEA AND/OR VOMITING Diazepam 5 mg 04/30/19 14:00 04/30/19 14:20 Valium - PO 5 mg TID ANDREW Administration Diphenhydramine HCl 12.5 mg 04/29/19 16:01 Benadryl Injection - IVPUSH ONCE PRN FOR ITCHING Fentanyl 50 mcg 04/29/19 16:01 Sublimaze Injection - IVPUSH [id number] PRN PAIN-PACU ORDER X 4 DOSES ONLY Fluoxetine HCl 20 mg 04/30/19 10:00 04/30/19 09:07 Prozac - PO 20 mg DAILY ANDREW Administration Hydromorphone HCl 10 mg 04/29/19 16:15 04/29/19 23:30 Hydromorphone 10 Mg/50 Ml-Ns [employer] 05/06/19 16:01 Not Given [employer] [facility] Protocol Lactated Ringer's 1,000 mls @ 75 mls/hr 04/30/19 11:26 04/30/19 12:13 Lactated Ringers Solution IV 75 mls/hr ASDIR ANDREW Administration Insulin Aspart 1 vial 04/30/19 07:00 04/30/19 12:12 Novolog Vial Sliding Scale - SQ Not Given ACHS [facility] Protocol Ondansetron HCl 4 mg 04/29/19 16:01 Zofran Injection IVPUSH Q4H PRN NAUSEA AND/OR VOMITING Promethazine HCl 12.5 mg 04/29/19 16:01 Phenergan Injection - IVPB Q6H PRN NAUSEA AND/OR VOMITING Verapamil HCl 40 mg 04/30/19 10:00 04/30/19 09:07 Calan - PO 40 mg DAILY ANDREW Administration ASSESSMENT AND PLAN: This is a 54 year old woman with a history of HTN, type 2 DM, depression, PTSD, GERD, lumbar spinal stenosis with radiculopathy and neurogenic claudication who presented to the hospital for lumbar spine surgery. 1. Lumbar spinal stenosis with radiculopathy and neurogenic claudication - s/p L4, L5, S1 bilateral laminectomies & osteotomies (facetectomies); L4-L5 , L5-S1 posterior lumbar interbody fusion; L4-S1 posterior instrumentation; L4- S1 posterolateral arthrodesis; bone allograft; bone autograft; bone marrow aspiration; complex wound closure (20cm) on 04/29 - Pain control - Incentive spirometer - Physical therapy - Remove [place] when ambulating 2. HTN - Continue verapamil 3. Type 2 DM - Continue Novolog sliding scale 4. Depression, PTSD - Continue Prozac, Valium 5. GERD
--- NOTE | 2019-04-30 18:30 | PN ---
Progress Note (short form) - Note Progress Note: 54F s/p L4-L5, L5-S1 bilateral laminectomies; bilateral L4-L5, L5-S1 facetectomies; L4-L5, L5-S1 PLIF w/L4-S1 posterior instrumented spinal fusion POD #1. Pain well controlled. No acute events overnight. Pt. denies overnight history of headaches, chest pain, shortness of breath, nausea, vomiting, chills, & sweats. (+) [place]; (-) Flatus; (-) BM. All labs and vitals reviewed. PE: AAO x 3, NAD. L-Spine: Incision, dressing C/D/I. B/L LE NV Status at Baseline. 54F s/p L4-L5, L5-S1 bilateral laminectomies; bilateral L4-L5, L5-S1 facetectomies; L4-L5, L5-S1 PLIF w/L4-S1 posterior instrumented spinal fusion POD #1. -Pain control: NO NSAID's. -Nursing care: fastidious avoidance of decubitus ulcers; log roll/place on wedge pillows every 2 hours; rolled up towels under the ankles to offload the heels. -DVT PPx: -Mechanical only: JOSE MIGUEL's, SCD's. -Chemical: None. -Incentive spirometry q15 min. -NPO until flatus. -PT/OT/Rehab, OOB. -WBAT B/L LE. -Raised toilet seat. -No bending, lifting (>5 lbs), or twisting for 9-12 months. -Care per ICU & medical hospitalist team. -Discharge planning: f/u 7-10 days after discharge from [facility] office; call for appointment; . -Will follow. Juno Moise MD (Orthopaedic Surgery).
[2019-05-01] MEDS: diazePAM 5 MG TABLET PO SCH ×4 (01:26→21:30)
[2019-05-01] MEDS: HYDROmorphone *PCA* 10MG/50ML DISP.SYRIN PCA SCH (01:27)
[2019-05-01] MEDS: ACETAMINOPHEN 1000 MG/100 ML VIAL (NON FORMULARY) IVPB PRN ×2 (06:14→16:02)
[2019-05-01] MEDS: INSULIN SLIDING SCALE (NOVOLOG) 1 VIAL SQ SCH ×4 (06:18→21:31)
[2019-05-01 06:28] LABS: HEMATOCRIT 26.7 % (32.4-45.2); HEMOGLOBIN 8.6 GM/dL (10.7-15.3); MCH 27.1 pg (25.7-33.7); MCHC 32.1 g/dl (32.0-36.0); MEAN CELL VOLUME 84.4 fl (80-96); MEAN PLT VOLUME 7.7 fl (7.5-11.1); PLATELET COUNT 358 K/MM3 (134-434); RBC 3.16 M/mm3 (3.60-5.2); RDW 16.6 % (11.6-15.6); WHITE BLOOD COUNT 18.3 K/mm3 (4.0-10.0)
[2019-05-01 07:10] LABS: BILIRUBIN,TOTAL 0.7 mg/dL (0.2-1); BLOOD UREA NITROGEN 5.1 mg/dL (7-18); CALCIUM 8.7 mg/dL (8.5-10.1); CREATININE 0.6 mg/dL (0.55-1.3); MAGNESIUM 1.4 mg/dL (1.8-2.4); PHOSPHOROUS 3.2 mg/dL (2.5-4.9); POTASSIUM 3.9 mmol/L (3.5-5.1); TOT PROT 6.2 g/dl (6.4-8.2)
[2019-05-01] MEDS ORDERED: MAGNESIUM SULF 50% (8.12 MEQ/2 ML-1 GM VIAL) IVPB ONE (08:30)
--- NOTE | 2019-05-01 08:39 | PN ---
Physical Exam: SUBJECTIVE: Patient seen and examined. States that pain is under better control today. Would like to eat and complains of hunger but still has not passed gas. Complains of intermittent muscle spasms in right thigh that resolve quickly and are not painful. POD#2 OBJECTIVE: Vital Signs Period Temp Pulse Resp BP Sys/Ayoub Pulse Ox Last 24 Hr 97.3 F-102 F 71-122 14-117 95-142/49-80 22-100 GENERAL: The patient is awake, alert, and fully oriented, in no acute distress. HEAD: Normal with no signs of trauma. EYES: EOMI, no ptosis, no scleral icterus ENT: moist mucous membranes NECK: Trachea midline LUNGS: decreased breath sounds bilaterally, no wheezing, crackles, no accessory muscle use HEART: Tachycardic, normal rhythm, no murmur ABDOMEN: Soft, nontender, nondistended, normoactive bowel sounds, no guarding EXTREMITIES: 2+ pulses, warm, well-perfused, no edema. NEUROLOGICAL: Normal speech, gait not observed. PSYCH: Normal mood, normal affect. SKIN: Warm, dry Laboratory Results - last 24 hr 04/30/19 04/30/19 04/30/19 12:05 17:14 20:40 WBC RBC Hgb Hct MCV MCH MCHC RDW Plt Count MPV Sodium Potassium Chloride Carbon Dioxide Anion Gap BUN Creatinine Est GFR (CKD-EPI)AfAm Est GFR (CKD-EPI)NonAf POC Glucometer 100 110 120 Random Glucose Calcium Phosphorus Magnesium Total Bilirubin AST ALT Alkaline Phosphatase Total Protein Albumin 05/01/19 05/01/19 05/01/19 05:26 05:53 05:53 WBC 18.3 H RBC 3.16 L Hgb 8.6 L Hct 26.7 L MCV 84.4 MCH 27.1 MCHC 32.1 RDW 16.6 H Plt Count 358 MPV 7.7 Sodium 140 Potassium 3.9 Chloride 102 Carbon Dioxide 28 Anion Gap 10 BUN 5.1 L Creatinine 0.6 Est GFR (CKD-EPI)AfAm 119.77 Est GFR (CKD-EPI)NonAf 103.34 POC Glucometer 123 Random Glucose 109 H Calcium 8.7 Phosphorus 3.2 Magnesium 1.4 L Total Bilirubin 0.7 AST 26 ALT 23 Alkaline Phosphatase 82 Total Protein 6.2 L Albumin 3.0 L Active Medications Generic Name Dose Route Start Last Admin Trade Name Freq PRN Reason Stop Dose Admin Acetaminophen 1,000 mg 04/30/19 19:44 05/01/19 06:14 Ofirmev Injection - IVPB 1,000 mg Q6H PRN Administration FEVER Albuterol Sulfate 2 puff 04/29/19 20:40 Ventolin Hfa Inhaler - IH Q4H PRN ASTHMA Dexamethasone Sodium Phosphate 4 mg 04/29/19 16:01 Decadron Injection - IVPUSH ONCE PRN NAUSEA AND/OR VOMITING Diazepam 5 mg 04/30/19 14:00 05/01/19 06:18 Valium - PO 5 mg TID ANDREW Administration Diphenhydramine HCl 12.5 mg 04/29/19 16:01 Benadryl Injection - IVPUSH ONCE PRN FOR ITCHING Fluoxetine HCl 20 mg 04/30/19 10:00 04/30/19 09:07 Prozac - PO 20 mg DAILY ANDREW Administration Hydromorphone HCl 10 mg 04/29/19 16:15 05/01/19 01:27 Hydromorphone 10 Mg/50 Ml-Ns [employer] 05/06/19 16:01 Not Given [employer] [facility] Protocol Lactated Ringer's 1,000 mls @ 75 mls/hr 04/30/19 11:26 04/30/19 18:31 Lactated Ringers Solution IV 75 mls/hr ASDIR ANDREW Administration Insulin Aspart 1 vial 04/30/19 07:00 05/01/19 06:18 Novolog Vial Sliding Scale - SQ Not Given ACHS [facility] Protocol Ondansetron HCl 4 mg 04/29/19 16:01 Zofran Injection IVPUSH Q4H PRN NAUSEA AND/OR VOMITING Promethazine HCl 12.5 mg 04/29/19 16:01 Phenergan Injection - IVPB Q6H PRN NAUSEA AND/OR VOMITING Verapamil HCl 40 mg 04/30/19 10:00 04/30/19 09:07 Calan - PO 40 mg DAILY ANDREW Administration ASSESSMENT/PLAN: 54 y/o/f with PMHx of HTN, NIDDM, Depression, PTSD, and GERD here s/p L4-L5, L5- S1 bilateral laminectomies; bilateral L4-L5, L5-S1 facetectomies; L4-L5, L5-S1 PLIF w/L4-S1 posterior instrumented spinal fusion POD #2. #Neuro - AAOx3 - Dilaudid [employer] for pain control. NO NSAID's. - Pain control as per anesthesia - Continue home Prozac for depression - WBAT B/L LE. - No heavy lifting (>5 lbs), bending or twisting x6 months post op. - B/L UE & LE NV checks. - PT/OT/Rehab, OOB. -WBAT B/L LE. #Cardio - Monitor for signs of bradycardia, tachycadia #Pulm - Maintain O2 saturation >92% - encourage incentive spirometry #GI - NPO until flatus - Advance diet as tolerated #ID - 3x Ancef post-op given - Febrile overnight. WBC at 18.3, uptrending. - CXR to r/o PNA #Endo - Hx of DM - BGMs - ISS #Prophylaxis - Mechanical only: JOSE MIGUEL's, SCD's. #FEN - LR @75mls/hr - NPO until flatus - Hypo Mg, repleted #Disposition - Continue ICU monitoring until cleared for floors by surgery Visit type - Emergency Visit Emergency Visit: No - New Patient This patient is new to me today: No - Critical Care Critical Care patient: Yes Total Critical Care Time (in minutes): 36 Critical Care Statement: The care of this patient involved high complexity decision making to prevent further life threatening deterioration of the patient 's condition and/or to evaluate & treat vital organ system(s) failure or risk of failure. ATTENDING PHYSICIAN STATEMENT I saw and evaluated the patient. I reviewed the resident's note and discussed the case with the resident. I agree with the resident's findings and plan as documented. SUBJECTIVE: OBJECTIVE: ASSESSMENT AND PLAN:
[2019-05-01] MEDS ORDERED: PT OWN MED DRAWER 7, Y5N ONE (09:31)
[2019-05-01] MEDS: FLUoxetine HCL 20 MG CAPSULE (FP) PO SCH (09:37)
[2019-05-01] MEDS: VERAPAMIL HCL 40 MG TABLET (FP) PO SCH ×2 (09:37→10:13)
--- NOTE | 2019-05-01 11:19 | PN ---
Teaching Attending Note Name of Resident: Cari Miller ATTENDING PHYSICIAN STATEMENT I saw and evaluated the patient. I reviewed the resident's note and discussed the case with the resident. I agree with the resident's findings and plan as documented. SUBJECTIVE: Pt seen and examined in the ICU. Pain better controlled. No flatus yet. No nausea or vomiting. Fever overnight. OBJECTIVE: Vital Signs Period Temp Pulse Resp BP Sys/Ayoub Pulse Ox Last 24 Hr 97.3 F-102 F 71-122 10-117 95-142/50-80 22-100 Intake & Output 04/28/19 04/29/19 04/30/19 05/01/19 23:59 23:59 23:59 23:59 Intake Total 3350 2680 Output Total 700 2215 Balance 2650 465 Gen: NAD at rest Heart: RRR Lung: decreased breath sounds at the bases Abd: soft, nontender Ext: no edema CBC, BMP 05/01/19 05:53 05/01/19 05:53 Active Medications Acetaminophen (Ofirmev Injection -) 1,000 mg IVPB Q6H PRN PRN Reason: FEVER Last Admin: 05/01/19 06:14 Dose: 1,000 mg Albuterol Sulfate (Ventolin Hfa Inhaler -) 2 puff IH Q4H PRN PRN Reason: ASTHMA Dexamethasone Sodium Phosphate (Decadron Injection -) 4 mg IVPUSH ONCE PRN PRN Reason: NAUSEA AND/OR VOMITING Diazepam (Valium -) 5 mg PO TID [facility] Last Admin: 05/01/19 06:18 Dose: 5 mg Diphenhydramine HCl (Benadryl Injection -) 12.5 mg IVPUSH ONCE PRN PRN Reason: FOR ITCHING Fluoxetine HCl (Prozac -) 20 mg PO DAILY [facility] Last Admin: 05/01/19 09:37 Dose: 20 mg Hydromorphone HCl (Hydromorphone 10 Mg/50 Ml-Ns) 10 mg PRODUCT TEST SPECIALIST PRODUCT TEST SPECIALIST [facility]; Protocol Stop: 05/06/19 16:01 Last Admin: 05/01/19 01:27 Dose: Not Given Lactated Ringer's (Lactated Ringers Solution) 1,000 mls @ 75 mls/hr IV ASDIR [facility] Last Admin: 04/30/19 18:31 Dose: 75 mls/hr Insulin Aspart (Novolog Vial Sliding Scale -) 1 vial SQ ACHS [facility]; Protocol Last Admin: 05/01/19 11:14 Dose: Not Given Ondansetron HCl (Zofran Injection) 4 mg IVPUSH Q4H PRN PRN Reason: NAUSEA AND/OR VOMITING Promethazine HCl (Phenergan Injection -) 12.5 mg IVPB Q6H PRN PRN Reason: NAUSEA AND/OR VOMITING Verapamil HCl (Calan -) 40 mg PO DAILY [facility] Last Admin: 05/01/19 10:13 Dose: 40 mg ASSESSMENT AND PLAN: Lumbar Spinal Stenosis with Radiculopathy and Neurogenic Claudication s/p L4-L5, L5-S1 bilateral laminectomies; bilateral L4-L5, L5-S1 facetectomies; L4-L5, L5-S1 PLIF w/L4-S1 HTN DM Depression - pain control - incentive spirometry - PO when flauts - d/c medina when OOB - DVT prophylaxis - disposition per surgery
[2019-05-01] MEDS: LACTATED RINGERS SOLUTION 1,000 ML IV SCH ×2 (11:58→19:00)
[2019-05-01] MEDS ORDERED: HYDROmorphone *PCA* 10MG/50ML DISP.SYRIN PCA SCH ×2 (12:01→18:36)
--- NOTE | 2019-05-01 13:33 | PN ---
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
[2019-05-01] MEDS ORDERED: ACETAMINOPHEN 1000 MG/100 ML VIAL (NON FORMULARY) IVPB ONE (15:51)
--- NOTE | 2019-05-01 17:04 | PATH ---
Surgical Pathology Report Patient Name: ALF SKELTON [facility]. Rec. #: [id number] /Age/Gender: 1965 (Age: 54) / F Account: [id number] [facility]: 04/29/2019 Received: 04/30/2019 Reported: 05/01/2019 Physicians: Jarad Moise M.D. Specimen(s) Received L4-L5-S1 DISC Clinical History Spinal stenosis Final Diagnosis DISC L4-L5-S1, DISCECTOMY: FRAGMENTS OF BONE AND CARTILAGINOUS TISSUE WITH FOCAL DEGENERATIVE CHANGE. Electronically Signed Nisha Velazco M.D. Gross Description Received in formalin labeled "disc L4-L5-S1," is a 4.5 x 3.0 x 0.3 cm aggregate of nuñez fragments of fibrocartilaginous tissue. A farm loan representative portion is submitted in one cassette. /04/30/201904/30/2019
--- NOTE | 2019-05-01 18:16 | PN ---
Physical Exam: SUBJECTIVE: Patient seen and examined in the morning. Patient had fever of 102 overnight. Patient had productive cough briefly overnight. Patient felt chills. No complaints of chest pain, shortness of breath, nausea, vomiting, diarrhea. OBJECTIVE: Vital Signs Period Temp Pulse Resp BP Sys/Ayoub Pulse Ox Last 24 Hr 99 F-102 F 71-122 10-117 95-125/50-75 22-99 GENERAL: The patient is awake, alert, and fully oriented, in no acute distress. HEAD: Normal with no signs of trauma. EYES: PERRL, extraocular movements intact, NECK: Trachea midline, full range of motion, supple. LUNGS: Breath sounds equal,no wheezing, no crackles, no accessory muscle use HEART: Tachycardic, normal rhythm, no murmur ABDOMEN: Soft, nontender, nondistended, normoactive bowel sounds. EXTREMITIES: 2+ pulses, warm, well-perfused, no edema. NEUROLOGICAL: Cranial nerves II through XII grossly intact. Normal speech PSYCH: Normal mood, normal affect. SKIN: Warm, dry Laboratory Results - last 24 hr 04/30/19 05/01/19 05/01/19 20:40 05:26 05:53 WBC 18.3 H RBC 3.16 L Hgb 8.6 L Hct 26.7 L MCV 84.4 MCH 27.1 MCHC 32.1 RDW 16.6 H Plt Count 358 MPV 7.7 Sodium Potassium Chloride Carbon Dioxide Anion Gap BUN Creatinine Est GFR (CKD-EPI)AfAm Est GFR (CKD-EPI)NonAf POC Glucometer 120 123 Random Glucose Calcium Phosphorus Magnesium Total Bilirubin AST ALT Alkaline Phosphatase Total Protein Albumin 05/01/19 05/01/19 05/01/19 05:53 10:48 17:39 WBC RBC Hgb Hct MCV MCH MCHC RDW Plt Count MPV Sodium 140 Potassium 3.9 Chloride 102 Carbon Dioxide 28 Anion Gap 10 BUN 5.1 L Creatinine 0.6 Est GFR (CKD-EPI)AfAm 119.77 Est GFR (CKD-EPI)NonAf 103.34 POC Glucometer 99 113 Random Glucose 109 H Calcium 8.7 Phosphorus 3.2 Magnesium 1.4 L Total Bilirubin 0.7 AST 26 ALT 23 Alkaline Phosphatase 82 Total Protein 6.2 L Albumin 3.0 L Active Medications Generic Name Dose Route Start Last Admin Trade Name Freq PRN Reason Stop Dose Admin Acetaminophen 1,000 mg 12/03/19 19:44 05/01/19 16:02 Ofirmev Injection - IVPB 1,000 mg Q6H PRN Administration FEVER Albuterol Sulfate 2 puff 04/29/19 20:40 Ventolin Hfa Inhaler - IH Q4H PRN ASTHMA Dexamethasone Sodium Phosphate 4 mg 04/29/19 16:01 Decadron Injection - IVPUSH ONCE PRN NAUSEA AND/OR VOMITING Diazepam 5 mg 04/30/19 14:00 05/01/19 15:26 Valium - PO 5 mg TID [facility]W Administration Diphenhydramine HCl 12.5 mg 04/29/19 16:01 Benadryl Injection - IVPUSH ONCE PRN FOR ITCHING Fluoxetine HCl 20 mg 04/30/19 10:00 05/01/19 09:37 Prozac - PO 20 mg DAILY [facility] Administration Hydromorphone HCl 10 mg 05/01/19 12:01 05/01/19 12:05 Hydromorphone 10 Mg/50 Ml-Ns MECHANICAL PENCILS ASSEMBLER 05/06/19 16:01 10 mg MECHANICAL PENCILS ASSEMBLER ANDREW Administration Protocol Lactated Ringer's 1,000 mls @ 75 mls/hr 04/30/19 11:26 05/01/19 11:58 Lactated Ringers Solution IV 75 mls/hr ASDIR [facility] Administration Insulin Aspart 1 vial 04/30/19 07:00 05/01/19 17:49 Novolog Vial Sliding Scale - SQ Not Given ACHS [facility] Protocol Ondansetron HCl 4 mg 04/29/19 16:01 Zofran Injection IVPUSH Q4H PRN NAUSEA AND/OR VOMITING Promethazine HCl 12.5 mg 04/29/19 16:01 Phenergan Injection - IVPB Q6H PRN NAUSEA AND/OR VOMITING Verapamil HCl 40 mg 04/30/19 10:00 05/01/19 10:13 Calan - PO 40 mg DAILY [facility] Administration ASSESSMENT/PLAN: 54 F PMH of HTn, NIDDM, Depression, PTSD, GERD who is POD #2 from L4-L5, L5-S1 b /l laminectomy; b/l L4-L5, L5-S1 facetectomies; L4-L5, L5-S1 PLIF w/ L4-S1 posterior instrumented spinal fusion. 1)POD #2 Laminectomies -Dilaudid MECHANICAL PENCILS ASSEMBLER -NPO until passes flatus -Unable to ambulate with Physical therapy -no heavy lifting (>5 lbs), bending, twisting for 6 months post op -Incentive spirometry 2)Fever -Fever trending down -F/U urine culture -Blood cultures if temperature spikes 3)DM -Sliding scale 4)PTSD/Depression -Prozac 20mg PO Daily -Valium 5 mg PO TID 5)HTN -Continue Verapamil 40 mg PO Daily 6) GERD -Protonix 40 mg PO Daily DVT Prophylaxis: SCDs F: LR @ 75 E: Monitor CMP N: NPO until flatus, can advance diet to clears after eating. Dispo: Pending transfer to medicine floors Visit type - Emergency Visit Emergency Visit: Yes ED Registration Date: 04/29/19 Care time: The patient presented to the Emergency Department on the above date and was hospitalized for further evaluation of their emergent condition. - New Patient This patient is new to me today: No - Critical Care Critical Care patient: No ATTENDING PHYSICIAN STATEMENT I saw and evaluated the patient. I reviewed the resident's note and discussed the case with the resident. I agree with the resident's findings and plan as documented. SUBJECTIVE: OBJECTIVE: ASSESSMENT AND PLAN:
[2019-05-01] MEDS ORDERED: ALBUTEROL SO4 8 GM HFA INHALER IH PRN (18:36)
[2019-05-01] MEDS ORDERED: ONDANSETRON 4 MG/2 ML VIAL IVPUSH PRN (18:36)
[2019-05-01] MEDS ORDERED: DEXAMETHASONE SOD PHOSPHATE 4 MG/1 ML VIAL IVPUSH PRN (18:36)
[2019-05-01] MEDS ORDERED: PROMETHAZINE HCL 25 MG/1 ML VIAL IVPB PRN (18:36)
--- NOTE | 2019-05-01 18:42 | PN ---
Teaching Attending Note Name of Resident: Ana Nelson ATTENDING PHYSICIAN STATEMENT I saw and evaluated the patient. I reviewed the resident's note and discussed the case with the resident. I agree with the resident's findings and plan as documented with exceptions below. SUBJECTIVE: patient seen and examined, left leg spasms. Still with no flatus. No suprapubic discomfort. No cough, nausea, vomiting noted. OBJECTIVE: Vital Signs Period Temp Pulse Resp BP Sys/Ayoub Pulse Ox Last 24 Hr 99 F-102 F 71-122 10-117 95-125/50-75 22-99 Intake & Output 04/28/19 04/29/19 04/30/19 05/01/19 23:59 23:59 23:59 23:59 Intake Total 3350 2680 Output Total 700 2215 955 Balance 2650 465 -955 Weight 182 lb General: lying in bed, no acute distress Chest: no rales or wheezing anteriorly, patient unable to co-operate with back auscultation Abdomen:Soft, NT, pos bowel sounds, mild suprapubic tenderness, medina in place Extremities no edema Home Medications Medication Instructions Recorded Aspirin 81 mg PO DAILY 04/24/19 Cyclobenzaprine HCl 10 mg PO DAILY 04/24/19 Fluoxetine HCl [Prozac] 20 mg PO DAILY 04/24/19 Gabapentin 100 mg PO TID 04/24/19 Liraglutide [Victoza -] 1.8 mg SQ DAILY 04/24/19 Omeprazole 20 mg PO DAILY 04/24/19 Verapamil HCl 40 mg PO DAILY 04/24/19 metFORMIN HCL [Metformin HCl] 500 mg PO BID 04/24/19 Albuterol Sulfate Inhaler - 2 inh PO Q4H PRN 04/29/19 [Ventolin Hfa Inhaler -] Active Medications Acetaminophen (Ofirmev Injection -) 1,000 mg IVPB Q6H PRN PRN Reason: FEVER Albuterol Sulfate (Ventolin Hfa Inhaler -) 2 puff IH Q4H PRN PRN Reason: ASTHMA Dexamethasone Sodium Phosphate (Decadron Injection -) 4 mg IVPUSH ONCE PRN PRN Reason: NAUSEA AND/OR VOMITING Diazepam (Valium -) 5 mg PO TID [facility] Diphenhydramine HCl (Benadryl Injection -) 12.5 mg IVPUSH ONCE PRN PRN Reason: FOR ITCHING Fluoxetine HCl (Prozac -) 20 mg PO DAILY [facility] Hydromorphone HCl (Hydromorphone 10 Mg/50 Ml-Ns) 10 mg OBSTETRICS NURSE PRACTITIONER OBSTETRICS NURSE PRACTITIONER [facility]; Protocol Stop: 05/06/19 16:01 Lactated Ringer's (Lactated Ringers Solution) 1,000 mls @ 75 mls/hr IV ASDIR [facility] Insulin Aspart (Novolog Vial Sliding Scale -) 1 vial SQ ACHS [facility]; Protocol Ondansetron HCl (Zofran Injection) 4 mg IVPUSH Q4H PRN PRN Reason: NAUSEA AND/OR VOMITING Promethazine HCl (Phenergan Injection -) 12.5 mg IVPB Q6H PRN PRN Reason: NAUSEA AND/OR VOMITING Verapamil HCl (Calan -) 40 mg PO DAILY [facility] Laboratory Results - last 24 hr 04/30/19 05/01/19 05/01/19 20:40 05:26 05:53 WBC 18.3 H RBC 3.16 L Hgb 8.6 L Hct 26.7 L MCV 84.4 MCH 27.1 MCHC 32.1 RDW 16.6 H Plt Count 358 MPV 7.7 Sodium Potassium Chloride Carbon Dioxide Anion Gap BUN Creatinine Est GFR (CKD-EPI)AfAm Est GFR (CKD-EPI)NonAf POC Glucometer 120 123 Random Glucose Calcium Phosphorus Magnesium Total Bilirubin AST ALT Alkaline Phosphatase Total Protein Albumin 05/01/19 05/01/19 05/01/19 05:53 10:48 17:39 WBC RBC Hgb Hct MCV MCH MCHC RDW Plt Count MPV Sodium 140 Potassium 3.9 Chloride 102 Carbon Dioxide 28 Anion Gap 10 BUN 5.1 L Creatinine 0.6 Est GFR (CKD-EPI)AfAm 119.77 Est GFR (CKD-EPI)NonAf 103.34 POC Glucometer 99 113 Random Glucose 109 H Calcium 8.7 Phosphorus 3.2 Magnesium 1.4 L Total Bilirubin 0.7 AST 26 ALT 23 Alkaline Phosphatase 82 Total Protein 6.2 L Albumin 3.0 L CXr results and images reviewed ASSESSMENT AND PLAN: 54 year old woman with a history of HTN, type 2 DM, depression, PTSD, GERD, lumbar spinal stenosis with radiculopathy and neurogenic claudication who presented to the hospital for lumbar spine surgery. -Lumbar spinal stenosis with radiculopathy and neurogenic claudication s/p L4, L5, S1 bilateral laminectomies & osteotomies (facetectomies); L4-L5, L5-S1 posterior lumbar interbody fusion; L4-S1 posterior instrumentation; L4-S1 posterolateral arthrodesis; bone allograft; bone autograft; bone marrow aspiration; complex wound closure (20cm) on 04/29 -Post operative fevers, suspected Atelectasis,r/o UTI/aspiration -HTN -Type II DM -Depression/PTSD -GERD Plan: DVTPPX/activity/PO per Dr. Moise NPO till flatus Voiding trial once ambulatory. urine studies/blood cx, CXr. Hold off on abx for now. Dilaudid OBSTETRICS NURSE PRACTITIONER, taper as improved. Incentive spirometry. PT eval per Dr. Moise. Continue Verapamil/ISS/prosac/valium DVTPPX per Dr. Moise Dispo anticipate SNF when clinically improved.
[2019-05-02] MEDS: LACTATED RINGERS SOLUTION 1,000 ML IV SCH ×3 (02:25→16:25)
[2019-05-02] MEDS ORDERED: PANTOPRAZOLE SODIUM 40 MG VIAL IVPUSH ONE (03:34)
[2019-05-02] MEDS: ACETAMINOPHEN 1000 MG/100 ML VIAL (NON FORMULARY) IVPB PRN (04:04)
[2019-05-02] MEDS: INSULIN SLIDING SCALE (NOVOLOG) 1 VIAL SQ SCH ×4 (06:23→22:51)
[2019-05-02] MEDS: diazePAM 5 MG TABLET PO SCH ×3 (06:24→22:51)
[2019-05-02 08:05] LABS: HEMATOCRIT 25.3 % (32.4-45.2); HEMOGLOBIN 8.2 GM/dL (10.7-15.3); MCH 27.6 pg (25.7-33.7); MCHC 32.5 g/dl (32.0-36.0); MEAN CELL VOLUME 84.9 fl (80-96); MEAN PLT VOLUME 7.9 fl (7.5-11.1); PLATELET COUNT 348 K/MM3 (134-434); RBC 2.98 M/mm3 (3.60-5.2); RDW 16.3 % (11.6-15.6); WHITE BLOOD COUNT 18.9 K/mm3 (4.0-10.0)
[2019-05-02 08:27] LABS: ALBUMIN 2.5 g/dl (3.4-5.0); BILIRUBIN,TOTAL 0.6 mg/dL (0.2-1); BLOOD UREA NITROGEN 5.1 mg/dL (7-18); CALCIUM 8.5 mg/dL (8.5-10.1); CREATININE 0.5 mg/dL (0.55-1.3); MAGNESIUM 1.7 mg/dL (1.8-2.4); POTASSIUM 3.5 mmol/L (3.5-5.1); TOT PROT 5.8 g/dl (6.4-8.2)
[2019-05-02] MEDS ORDERED: oxyCODONE HCL 5 MG TABLET PO PRN (09:32)
[2019-05-02] MEDS ORDERED: GLYCERIN 1 RECTAL SUPPOSITORY, ADULT PR ONE (09:40)
[2019-05-02] MEDS ORDERED: PANTOPRAZOLE SODIUM 40 MG VIAL IVPUSH SCH (10:00)
[2019-05-02] MEDS ORDERED: PT OWN MED DRAWER 7, Y5N ONE ×2 (10:08→11:30)
[2019-05-02] MEDS: FLUoxetine HCL 20 MG CAPSULE (FP) PO SCH (10:10)
[2019-05-02] MEDS: DOCUSATE SODIUM 100 MG CAPSULE (FP) PO SCH ×3 (10:10→22:51)
[2019-05-02] MEDS: POLYETHYLENE GLYCOL 3350 119 GM BTL PO SCH (10:10)
[2019-05-02] MEDS: VERAPAMIL HCL 40 MG TABLET (FP) PO SCH (10:11)
--- NOTE | 2019-05-02 10:44 | EKG ---
Test Reason : Blood Pressure : / mmHG Vent. Rate : 115 BPM Atrial Rate : 115 BPM P-R Int : 130 ms QRS Dur : 082 ms QT Int : 338 ms P-R-T Axes : 045 026 049 degrees QTc Int : 467 ms SINUS TACHYCARDIA POSSIBLE INFERIOR INFARCT , AGE UNDETERMINED ABNORMAL ECG NO PREVIOUS ECGS AVAILABLE Confirmed by CARLITA CARDONA, MARIO ([id number]) on 05/02/2019 10:44:16 AM Referred By: Jarad Moise Confirmed By:MARIO ZAZUETA MD
[2019-05-02] MEDS ORDERED: MAGNESIUM SULF 50% (8.12 MEQ/2 ML-1 GM VIAL) IVPB ONE (11:38)
--- NOTE | 2019-05-02 15:18 | PN ---
Teaching Attending Note Name of Resident: Ana Nelson ATTENDING PHYSICIAN STATEMENT I saw and evaluated the patient. I reviewed the resident's note and discussed the case with the resident. I agree with the resident's findings and plan as documented with exceptions below. SUBJECTIVE: Patient seen and examined. passing gas, reports gas pains, attempting to have a bowel movement, no new dyspnea, cough or concerns. OBJECTIVE: Vital Signs Period Temp Pulse Resp BP Sys/Ayoub Pulse Ox Last 24 Hr 98.5 F-100.2 F 83-123 16-20 104-147/64-83 97-98 Intake & Output 04/29/19 04/30/19 05/01/19 05/02/19 23:59 23:59 23:59 23:59 Intake Total 3350 2680 Output Total 700 2215 1365 210 Balance 2650 465 -1365 -210 Weight 182 lb General: lying in bed, no acute distress Chest: limited participation, unable to appreciate rales or wheezing Abdomen:Soft, obese, NT, tympanic, pos bowel sounds Extremities: no edema Home Medications Medication Instructions Recorded Aspirin 81 mg PO DAILY 04/24/19 Cyclobenzaprine HCl 10 mg PO DAILY 04/24/19 Fluoxetine HCl [Prozac] 20 mg PO DAILY 04/24/19 Gabapentin 100 mg PO TID 04/24/19 Liraglutide [Victoza -] 1.8 mg SQ DAILY 04/24/19 Omeprazole 20 mg PO DAILY 04/24/19 Verapamil HCl 40 mg PO DAILY 04/24/19 metFORMIN HCL [Metformin HCl] 500 mg PO BID 04/24/19 Albuterol Sulfate Inhaler - 2 inh PO Q4H PRN 04/29/19 [Ventolin Hfa Inhaler -] Active Medications Acetaminophen (Ofirmev Injection -) 1,000 mg IVPB Q6H PRN PRN Reason: FEVER Last Admin: 05/02/19 04:04 Dose: 1,000 mg Albuterol Sulfate (Ventolin Hfa Inhaler -) 2 puff IH Q4H PRN PRN Reason: ASTHMA Dexamethasone Sodium Phosphate (Decadron Injection -) 4 mg IVPUSH ONCE PRN PRN Reason: NAUSEA AND/OR VOMITING Diazepam (Valium -) 5 mg PO TID [facility] Last Admin: 05/02/19 13:40 Dose: 5 mg Diphenhydramine HCl (Benadryl Injection -) 12.5 mg IVPUSH ONCE PRN PRN Reason: FOR ITCHING Docusate Sodium (Colace -) 100 mg PO TID [facility] Last Admin: 05/02/19 13:40 Dose: 100 mg Fluoxetine HCl (Prozac -) 20 mg PO DAILY [facility] Last Admin: 05/02/19 10:10 Dose: 20 mg Hydromorphone HCl (Dilaudid Vial -) 1 mg IVPUSH Q4H PRN PRN Reason: PAIN LEVEL 6-10 Lactated Ringer's (Lactated Ringers Solution) 1,000 mls @ 100 mls/hr IV ASDIR [facility] Last Admin: 05/02/19 10:19 Dose: 100 mls/hr Insulin Aspart (Novolog Vial Sliding Scale -) 1 vial SQ ACHS [facility]; Protocol Last Admin: 05/02/19 11:43 Dose: Not Given Ondansetron HCl (Zofran Injection) 4 mg IVPUSH Q4H PRN PRN Reason: NAUSEA AND/OR VOMITING Last Admin: 05/02/19 13:40 Dose: 4 mg Oxycodone HCl (Roxicodone -) 5 mg PO Q4H PRN PRN Reason: PAIN LEVEL 4 - 6 Polyethylene Glycol (Miralax (For Daily Use) -) 17 gm PO DAILY [facility] Last Admin: 05/02/19 10:10 Dose: 17 grams Promethazine HCl (Phenergan Injection -) 12.5 mg IVPB Q6H PRN PRN Reason: NAUSEA AND/OR VOMITING Senna (Senna -) 2 tab PO [facility] Verapamil HCl (Calan -) 40 mg PO DAILY [facility] Last Admin: 05/02/19 10:11 Dose: 40 mg Laboratory Results - last 24 hr 05/01/19 05/01/19 05/02/19 17:39 21:13 06:21 WBC RBC Hgb Hct MCV MCH MCHC RDW Plt Count MPV Sodium Potassium Chloride Carbon Dioxide Anion Gap BUN Creatinine Est GFR (CKD-EPI)AfAm Est GFR (CKD-EPI)NonAf POC Glucometer 113 177 116 Random Glucose Calcium Phosphorus Magnesium Total Bilirubin AST ALT Alkaline Phosphatase Total Protein Albumin 05/02/19 05/02/19 05/02/19 07:22 07:22 11:41 WBC 18.9 H RBC 2.98 L Hgb 8.2 L Hct 25.3 L MCV 84.9 MCH 27.6 MCHC 32.5 RDW 16.3 H Plt Count 348 MPV 7.9 Sodium 137 Potassium 3.5 Chloride 100 Carbon Dioxide 28 Anion Gap 9 BUN 5.1 L Creatinine 0.5 L Est GFR (CKD-EPI)AfAm 127.17 Est GFR (CKD-EPI)NonAf 109.72 POC Glucometer 109 Random Glucose 108 H Calcium 8.5 Phosphorus 3.0 Magnesium 1.7 L Total Bilirubin 0.6 AST 24 ALT 17 Alkaline Phosphatase 94 Total Protein 5.8 L Albumin 2.5 L CXr no acute process ASSESSMENT AND PLAN: 54 year old woman with a history of HTN, type 2 DM, depression, PTSD, GERD, lumbar spinal stenosis with radiculopathy and neurogenic claudication who presented to the hospital for lumbar spine surgery. -Lumbar spinal stenosis with radiculopathy and neurogenic claudication s/p L4, L5, S1 bilateral laminectomies & osteotomies (facetectomies); L4-L5, L5-S1 posterior lumbar interbody fusion; L4-S1 posterior instrumentation; L4-S1 posterolateral arthrodesis; bone allograft; bone autograft; bone marrow aspiration; complex wound closure (20cm) on 04/29 -Post operative fevers, suspected Atelectasis,r/o UTI/aspiration -HTN -Type II DM -Depression/PTSD -GERD Plan: Placed on full liquid by Dr. Moise. Dulcolax supp x 1. Aggressive bowel regimen. Voiding trial once more ambulatory WBC overall unchanged, fever curve improved. CXR with no acute process. Monitor closely, hold off on abx, encourage ambulation/PT/aggressive incentive spirometry. Trend WBC. Urine cx sent, ?no ua. [place] changed. Additional w/u including blood cx/abx/imaging if recurrent fevers or new focal s /s. DVTPPX per Dr. Moise Off dilaudid FOUNDER AND CEO. IV dilaudid prn. Transition to PO over next 48 hours as improves. Valium. PT eval, per Dr. Moise. Continue Verapamil/ISS/prosac/valium Dispo anticipate SNF when clinically improved.
--- NOTE | 2019-05-02 15:21 | PN ---
Physical Exam: SUBJECTIVE: Patient seen and examined in the morning. No acute events overnight except for a fever of 100.2. Patient feels congested and feels gassy. No complaints of chest pain, shortness of breath. Patient had flatus passed in the morning. OBJECTIVE: Vital Signs Period Temp Pulse Resp BP Sys/Ayoub Pulse Ox Last 24 Hr 98.5 F-100.2 F 83-123 16-20 104-147/64-83 97-98 GENERAL: The patient is awake, alert, and fully oriented, in no acute distress. HEAD: Normal with no signs of trauma. EYES: PERRL, extraocular movements intact, NECK: Trachea midline, full range of motion, supple. LUNGS: Breath sounds equal,no wheezing, no crackles, no accessory muscle use HEART: Tachycardic, normal rhythm, no murmur ABDOMEN: Soft, nontender, nondistended, normoactive bowel sounds. EXTREMITIES: 2+ pulses, warm, well-perfused, no edema. NEUROLOGICAL: Cranial nerves II through XII grossly intact. Normal speech PSYCH: Normal mood, normal affect. SKIN: Warm, dry. Drain in place for surgical wound. No erythema or pus noted. Laboratory Results - last 24 hr 05/01/19 05/01/19 05/02/19 17:39 21:13 06:21 WBC RBC Hgb Hct MCV MCH MCHC RDW Plt Count MPV Sodium Potassium Chloride Carbon Dioxide Anion Gap BUN Creatinine Est GFR (CKD-EPI)AfAm Est GFR (CKD-EPI)NonAf POC Glucometer 113 177 116 Random Glucose Calcium Phosphorus Magnesium Total Bilirubin AST ALT Alkaline Phosphatase Total Protein Albumin 05/02/19 05/02/19 05/02/19 07:22 07:22 11:41 WBC 18.9 H RBC 2.98 L Hgb 8.2 L Hct 25.3 L MCV 84.9 MCH 27.6 MCHC 32.5 RDW 16.3 H Plt Count 348 MPV 7.9 Sodium 137 Potassium 3.5 Chloride 100 Carbon Dioxide 28 Anion Gap 9 BUN 5.1 L Creatinine 0.5 L Est GFR (CKD-EPI)AfAm 127.17 Est GFR (CKD-EPI)NonAf 109.72 POC Glucometer 109 Random Glucose 108 H Calcium 8.5 Phosphorus 3.0 Magnesium 1.7 L Total Bilirubin 0.6 AST 24 ALT 17 Alkaline Phosphatase 94 Total Protein 5.8 L Albumin 2.5 L Active Medications Generic Name Dose Route Start Last Admin Trade Name Freq PRN Reason Stop Dose Admin Acetaminophen 1,000 mg 05/01/19 18:36 05/02/19 04:04 Ofirmev Injection - IVPB 1,000 mg Q6H PRN Administration FEVER Albuterol Sulfate 2 puff 05/01/19 18:36 Ventolin Hfa Inhaler - IH Q4H PRN ASTHMA Dexamethasone Sodium Phosphate 4 mg 05/01/19 18:36 Decadron Injection - IVPUSH ONCE PRN NAUSEA AND/OR VOMITING Diazepam 5 mg 05/01/19 22:00 05/02/19 13:40 Valium - PO 5 mg TID [facility]W Administration Diphenhydramine HCl 12.5 mg 05/01/19 18:36 Benadryl Injection - IVPUSH ONCE PRN FOR ITCHING Docusate Sodium 100 mg 05/02/19 08:00 05/02/19 13:40 Colace - PO 100 mg TID ANDREW Administration Fluoxetine HCl 20 mg 05/02/19 10:00 05/02/19 10:10 Prozac - PO 20 mg DAILY [facility] Administration Hydromorphone HCl 1 mg 05/02/19 09:31 Dilaudid Vial - IVPUSH Q4H PRN PAIN LEVEL 6-10 Lactated Ringer's 1,000 mls @ 100 mls/hr 05/02/19 09:31 05/02/19 10:19 Lactated Ringers Solution IV 100 mls/hr ASDIR [facility]W Administration Insulin Aspart 1 vial 05/01/19 22:00 05/02/19 11:43 Novolog Vial Sliding Scale - SQ Not Given [facility]S [facility] Protocol Ondansetron HCl 4 mg 05/01/19 18:36 05/02/19 13:40 Zofran Injection IVPUSH 4 mg Q4H PRN Administration NAUSEA AND/OR VOMITING Oxycodone HCl 5 mg 05/02/19 09:32 Roxicodone - PO Q4H PRN PAIN LEVEL 4 - 6 Polyethylene Glycol 17 gm 05/02/19 10:00 05/02/19 10:10 Miralax (For Daily Use) - PO 17 grams DAILY [facility]W Administration Promethazine HCl 12.5 mg 05/01/19 18:36 Phenergan Injection - IVPB Q6H PRN NAUSEA AND/OR VOMITING Senna 2 tab 05/02/19 22:00 Senna - PO HS [facility]W Verapamil HCl 40 mg 05/02/19 10:00 05/02/19 10:11 Calan - PO 40 mg DAILY ANDREW Administration ASSESSMENT/PLAN: 54 F PMH of HTn, NIDDM, Depression, PTSD, GERD who is POD #3 from L4-L5, L5-S1 b /l laminectomy; b/l L4-L5, L5-S1 facetectomies; L4-L5, L5-S1 PLIF w/ L4-S1 posterior instrumented spinal fusion. 1)POD #3 Laminectomies -Dilaudid IV Q4H PRN -Oxycodone 5mg PO Q4H PRN -Senna and glycerin suppositories PRN -Unable to ambulate with Physical therapy -no heavy lifting (>5 lbs), bending, twisting for 6 months post op -Incentive spirometry 2)Fever -Fever spike of 100.2 overnight -F/U urine culture -Blood cultures if temperature spikes 3)DM -Sliding scale 4)PTSD/Depression -Prozac 20mg PO Daily -Valium 5 mg PO TID 5)HTN -Continue Verapamil 40 mg PO Daily 6) GERD -Protonix 40 mg PO Daily DVT Prophylaxis: SCDs F: LR @ 100 E: Monitor CMP N: Full Liquid Dispo: Pending transfer to medicine floors Visit type - Emergency Visit Emergency Visit: Yes ED Registration Date: 04/29/19 Care time: The patient presented to the Emergency Department on the above date and was hospitalized for further evaluation of their emergent condition. - New Patient This patient is new to me today: No - Critical Care Critical Care patient: No ATTENDING PHYSICIAN STATEMENT I saw and evaluated the patient. I reviewed the resident's note and discussed the case with the resident. I agree with the resident's findings and plan as documented. SUBJECTIVE: OBJECTIVE: ASSESSMENT AND PLAN:
[2019-05-02] MEDS: HYDROmorphone HCl 2 MG/ML VIAL IVPUSH PRN (16:35)
[2019-05-02 17:36] LABS: HEMOGLOBIN 8.8 GM/dL (10.7-15.3); MCH 27.4 pg (25.7-33.7); MCHC 32.5 g/dl (32.0-36.0); MEAN CELL VOLUME 84.3 fl (80-96); PLATELET COUNT 381 K/MM3 (134-434); RDW 16.1 % (11.6-15.6); WHITE BLOOD COUNT 17.8 K/mm3 (4.0-10.0)
[2019-05-02] MEDS: SENNOSIDES 8.6MG TABLET (FP) PO SCH (22:51)
[2019-05-03] MEDS: DOCUSATE SODIUM 100 MG CAPSULE (FP) PO SCH ×3 (05:36→21:15)
[2019-05-03] MEDS: diazePAM 5 MG TABLET PO SCH ×3 (05:36→21:15)
[2019-05-03] MEDS: INSULIN SLIDING SCALE (NOVOLOG) 1 VIAL SQ SCH ×4 (06:05→21:15)
[2019-05-03 08:14] LABS: BASO % 0.3 % (0-2.0); EOS % 1.2 % (0-4.5); LYMPH % 16.7 % (8-40); MCH 27.1 pg (25.7-33.7); MCHC 32.1 g/dl (32.0-36.0); MEAN CELL VOLUME 84.4 fl (80-96); MONO % 9.8 % (3.8-10.2); PLATELET COUNT 410 K/MM3 (134-434); RBC 2.96 M/mm3 (3.60-5.2); RDW 16.3 % (11.6-15.6); WHITE BLOOD COUNT 14.2 K/mm3 (4.0-10.0)
[2019-05-03 08:34] LABS: ALBUMIN 2.2 g/dl (3.4-5.0); BILIRUBIN,TOTAL 0.6 mg/dL (0.2-1); BLOOD UREA NITROGEN 5.9 mg/dL (7-18); CALCIUM 8.3 mg/dL (8.5-10.1); CREATININE 0.5 mg/dL (0.55-1.3); POTASSIUM 3.5 mmol/L (3.5-5.1); TOT PROT 5.4 g/dl (6.4-8.2)
[2019-05-03] MEDS ORDERED: PT OWN MED DRAWER 7, Y5N ONE (11:04)
[2019-05-03] MEDS: POLYETHYLENE GLYCOL 3350 119 GM BTL PO SCH (11:07)
[2019-05-03] MEDS: FLUoxetine HCL 20 MG CAPSULE (FP) PO SCH (11:07)
[2019-05-03] MEDS: HYDROmorphone HCl 2 MG/ML VIAL IVPUSH PRN (11:08)
[2019-05-03] MEDS: VERAPAMIL HCL 40 MG TABLET (FP) PO SCH (11:08)
--- NOTE | 2019-05-03 11:30 | PN ---
Progress Note (short form) - Note Progress Note: ID CONSULT DICTATED POST OP FEVER ASYMPTOMATIC BACTERURIA + OROLABIAL HSV AWAIT C/S OBSERVE OFF ANTIBIOTICS OOB VALTREX FOR HSV
[2019-05-03] MEDS ORDERED: INSULIN (NOVOLOG) ASPART 100 UNITS/ML 10ML VIAL ONE (12:04)
--- NOTE | 2019-05-03 12:15 | CONS ---
DATE OF CONSULTATION: DATE OF DICTATION: 05/03/2019 The patient is a 54-year-old female who was evaluated for postoperative fever. She was admitted to the hospital on April 29, 2019. She underwent an L4-L5, L5-S1 laminectomy with posterior interbody fusion, insertion of cage, pedicle screw instrumentation. She received cefazolin and vancomycin perioperatively. Her postoperative course has been complicated by low-grade fever. At the present time she is awake and alert. The patient states she has not been out of bed. She has no focal complaints. She denies any high-grade fever, shaking chills. No complaints of chest pain, shortness of breath, cough, or sputum production. No vomiting. No dysuria or hematuria. Patient has been passing flatus; however, her abdomen remains distended. PAST MEDICAL HISTORY: Positive for [id number] diabetes mellitus, hypertension, depression, posttraumatic stress disorder, gastroesophageal reflux, spinal stenosis. PAST SURGICAL HISTORY: Status post hysterectomy. ALLERGIES: No known allergies. MEDICATIONS: Tylenol, albuterol, Decadron, Valium, Prozac, Zofran, Protonix, Calan. SOCIAL HISTORY: Former smoker, lives in the community. REVIEW OF SYSTEMS: Neurologic: As per HPI. Cardiac: Negative chest pain or palpitations. Respiratory: Negative cough or sputum production. Gastrointestinal: Negative vomiting or diarrhea. Genitourinary: Negative for urinary tract infection. LABORATORY DATA: White count 14.2, hematocrit 25.0, platelets 410. Creatinine 0.5. Urine: Negative urine test. 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 Blood cultures are negative. Chest x-ray negative for acute infiltrate. PHYSICAL EXAMINATION: General: She is awake and alert, supine in bed, in no acute distress. Vital Signs: Temperature 98.8, T-max 100.4, blood pressure 125/83, pulse 112, regular. Respirations 18 per minute. HEENT: Sclerae are anicteric. There appears to be herpes simplex present on the upper lip. Cardiovascular: Heart sounds S1, S2. Lungs: Clear. Diminished breath sounds at the bases. Abdomen: Distended, tympanitic, nontender. Extremities: Negative for edema. Negative Homans sign. IMPRESSION: 1. Postoperative fever, unclear source. 2. Asymptomatic bacteriuria. 3. Orolabial herpes simplex. 4. Status post laminectomy. 5. Leukocytosis, possibly steroid induced. PLAN: Observe off antibiotic therapy. Await cultures. Out of bed and ambulation. Valtrex for herpes simplex. Thank you for the kind referral. TONY MURRAY M.D. [id number]
[2019-05-03] MEDS: valACYclovir HCL 500 MG TABLET (FP) PO SCH ×2 (13:19→21:15)
--- NOTE | 2019-05-03 14:52 | PN ---
Physical Exam: SUBJECTIVE: Patient seen and examined in the morning. No acute events overnight except for a fever of 100.4. Patient feels congested and feels gassy. No complaints of chest pain, shortness of breath. Patient has not moved bowels. OBJECTIVE: Vital Signs Period Temp Pulse Resp BP Sys/Ayoub Pulse Ox Last 24 Hr 98.3 F-100.4 F 110-119 18-20 107-128/64-83 GENERAL: The patient is awake, alert, and fully oriented, in no acute distress. HEAD: Normal with no signs of trauma. EYES: PERRL, extraocular movements intact, NECK: Trachea midline, full range of motion, supple. LUNGS: Breath sounds equal,no wheezing, no crackles, no accessory muscle use HEART: Tachycardic, normal rhythm, no murmur ABDOMEN: Soft, nontender, nondistended, normoactive bowel sounds. EXTREMITIES: 2+ pulses, warm, well-perfused, no edema. NEUROLOGICAL: Cranial nerves II through XII grossly intact. Normal speech PSYCH: Normal mood, normal affect. SKIN: Warm, dry. Drain in place for surgical wound. No erythema or pus noted. Laboratory Results - last 24 hr 05/02/19 05/02/19 05/02/19 15:59 16:27 22:13 WBC 17.8 H RBC 3.20 L Hgb 8.8 L Hct 27.0 L MCV 84.3 MCH 27.4 MCHC 32.5 RDW 16.1 H Plt Count 381 MPV 8.0 Absolute Neuts (auto) Neutrophils % Lymphocytes % Monocytes % Eosinophils % Basophils % Nucleated RBC % Sodium Potassium Chloride Carbon Dioxide Anion Gap BUN Creatinine Est GFR (CKD-EPI)AfAm Est GFR (CKD-EPI)NonAf POC Glucometer 130 122 Random Glucose Calcium Total Bilirubin AST ALT Alkaline Phosphatase Total Protein Albumin 05/03/19 05/03/19 05/03/19 05:49 07:10 07:10 WBC 14.2 H RBC 2.96 L Hgb 8.0 L Hct 25.0 L MCV 84.4 MCH 27.1 MCHC 32.1 RDW 16.3 H Plt Count 410 MPV 8.0 Absolute Neuts (auto) 10.2 H Neutrophils % 72.0 Lymphocytes % 16.7 Monocytes % 9.8 Eosinophils % 1.2 Basophils % 0.3 Nucleated RBC % 0 Sodium 136 Potassium 3.5 Chloride 99 Carbon Dioxide 30 Anion Gap 8 BUN 5.9 L Creatinine 0.5 L Est GFR (CKD-EPI)AfAm 127.17 Est GFR (CKD-EPI)NonAf 109.72 POC Glucometer 122 Random Glucose 121 H Calcium 8.3 L Total Bilirubin 0.6 AST 17 ALT 14 Alkaline Phosphatase 93 Total Protein 5.4 L Albumin 2.2 L 05/03/19 12:10 WBC RBC Hgb Hct MCV MCH MCHC RDW Plt Count MPV Absolute Neuts (auto) Neutrophils % Lymphocytes % Monocytes % Eosinophils % Basophils % Nucleated RBC % Sodium Potassium Chloride Carbon Dioxide Anion Gap BUN Creatinine Est GFR (CKD-EPI)AfAm Est GFR (CKD-EPI)NonAf POC Glucometer 127 Random Glucose Calcium Total Bilirubin AST ALT Alkaline Phosphatase Total Protein Albumin Active Medications Generic Name Dose Route Start Last Admin Trade Name Freq PRN Reason Stop Dose Admin Acetaminophen 1,000 mg 05/01/19 18:36 05/02/19 04:04 Ofirmev Injection - IVPB 1,000 mg Q6H PRN Administration FEVER Albuterol Sulfate 2 puff 05/01/19 18:36 Ventolin Hfa Inhaler - IH Q4H PRN ASTHMA Dexamethasone Sodium Phosphate 4 mg 05/01/19 18:36 Decadron Injection - IVPUSH ONCE PRN NAUSEA AND/OR VOMITING Diazepam 5 mg 05/01/19 22:00 05/03/19 13:19 Valium - PO 5 mg TID ANDREW Administration Diphenhydramine HCl 12.5 mg 05/01/19 18:36 Benadryl Injection - IVPUSH ONCE PRN FOR ITCHING Docusate Sodium 100 mg 05/02/19 08:00 05/03/19 13:19 Colace - PO 100 mg TID ANDREW Administration Fluoxetine HCl 20 mg 05/02/19 10:00 05/03/19 11:07 Prozac - PO 20 mg DAILY ANDREW Administration Insulin Aspart 1 vial 05/01/19 22:00 05/03/19 12:19 Novolog Vial Sliding Scale - SQ Not Given ACHS [facility] Protocol Ondansetron HCl 4 mg 05/01/19 18:36 05/02/19 13:40 Zofran Injection IVPUSH 4 mg Q4H PRN Administration NAUSEA AND/OR VOMITING Oxycodone HCl 5 mg 05/02/19 09:32 Roxicodone - PO Q4H PRN PAIN LEVEL 4 - 6 Polyethylene Glycol 17 gm 05/02/19 10:00 05/03/19 11:07 Miralax (For Daily Use) - PO 17 grams DAILY ANDREW Administration Promethazine HCl 12.5 mg 05/01/19 18:36 Phenergan Injection - IVPB Q6H PRN NAUSEA AND/OR VOMITING Senna 2 tab 05/02/19 22:00 05/02/19 22:51 Senna - PO 2 tab HS ANDREW Administration Valacyclovir HCl 500 mg 05/03/19 12:00 05/03/19 13:19 Valtrex - PO 500 mg BID ANDREW Administration Verapamil HCl 40 mg 05/02/19 10:00 05/03/19 11:08 Calan - PO 40 mg DAILY ANDREW Administration ASSESSMENT/PLAN: 54 F PMH of HTn, NIDDM, Depression, PTSD, GERD who is POD #3 from L4-L5, L5-S1 b /l laminectomy; b/l L4-L5, L5-S1 facetectomies; L4-L5, L5-S1 PLIF w/ L4-S1 posterior instrumented spinal fusion. 1)POD #3 Laminectomies -Oxycodone 5mg PO Q4H PRN -Senna and glycerin suppositories PRN -Unable to ambulate with Physical therapy -no heavy lifting (>5 lbs), bending, twisting for 6 months post op -Incentive spirometry -Dr. Moise for further pain management. -Drain D/C'd 2)Fever -Fever spike of 100.4 overnight -F/U Blood cultures -F/U urine culture- lactose fermenting gram negative 3)DM -Sliding scale 4) HSV -Valcyclovir 500 mg BID PO 4)PTSD/Depression -Prozac 20mg PO Daily -Valium 5 mg PO TID 5)HTN -Continue Verapamil 40 mg PO Daily 6) GERD -Protonix 40 mg PO Daily DVT Prophylaxis: SCDs F: LR @ 100 E: Monitor CMP N: Full Liquid Dispo: On medicine floors Visit type - Emergency Visit Emergency Visit: No - New Patient This patient is new to me today: Yes Date on this admission: 05/03/19 - Critical Care Critical Care patient: No ATTENDING PHYSICIAN STATEMENT I saw and evaluated the patient. I reviewed the resident's note and discussed the case with the resident. I agree with the resident's findings and plan as documented. SUBJECTIVE: OBJECTIVE: ASSESSMENT AND PLAN:
[2019-05-03] MEDS ORDERED: ACETAMINOPHEN 325 MG TABLET (FP) PO PRN (14:53)
--- NOTE | 2019-05-03 15:39 | PN ---
Progress Note (short form) - Note Progress Note: 54F s/p L4-L5, L5-S1 bilateral laminectomies; bilateral L4-L5, L5-S1 facetectomies; L4-L5, L5-S1 PLIF w/L4-S1 posterior instrumented spinal fusion POD #5 Sitting in the chair Walked in the room C/O LBP No leg pain Vitals as per chart. ABD Distended Soft Passinfg flatus No stool as yet. Wound Dry Drain D/[facility] At baseline -Pain control: NO NSAID's; OK to use PSYCHIATRIC SECURITY NURSE if needed; transition to oral analgesia post-op. -DVT PPx: -Mechanical only: JOSE MIGUEL's, SCD's. -Chemical: None. -Incentive spirometry q15 min. -[place] care; d/c when ambulating. -Post-op Ancef x 3 doses. -PT/OT/Rehab, OOB. -WBAT B/L LE. -No bending, lifting (>5 lbs), or twisting for 9-12 months. -Care per ICU & medical hospitalist teams. -Discharge planning: f/[facility] 7[facility]10 [facility]; call for appointment; . -Will follow. Jarad Moise MD (Orthopaedic Surgery).
[2019-05-03 16:24] LABS: HYALINE CASTS 188 /lpf (0-8); PH,URINE 5.5 (5.0-8.0); URINE APPEARANCE CLOUDY; URINE BACTERIA 5261.5 /hpf (NEGATIVE); URINE BILIRUBIN 1+ (NEGATIVE); URINE COLOR DK YELLOW; URINE GLUCOSE (UA) NEGATIVE (NEGATIVE); URINE KETONE 1+ (NEGATIVE); URINE LEUK ESTERASE 1+ (NEGATIVE); URINE NITRITE POSITIVE (NEGATIVE); URINE PROTEIN 1+ (NEGATIVE); URINE RBC 2 /hpf (0-4); URINE WBC 39 /hpf (0-5)
--- NOTE | 2019-05-03 17:21 | PN ---
Teaching Attending Note Name of Resident: Ana Nelson ATTENDING PHYSICIAN STATEMENT I saw and evaluated the patient. I reviewed the resident's note and discussed the case with the resident. I agree with the resident's findings and plan as documented. SUBJECTIVE: Complains of ongoing pain. Passing flatus but no BM. Fever overnight - no cough/sputum/dysuria/diarrhea. OBJECTIVE: Tmax 100.4, HR 112 Last Vital Signs Temp Pulse Resp BP Pulse Ox 98.8 F 120 H 18 118/82 98 05/03/19 08:53 05/03/19 14:00 05/03/19 14:00 05/03/19 14:00 05/02/19 10:00 HEENT - Atramatic, Normocephalic. DARREL. Herpetic lesion on upper lip. Heart- S1, S2, RRR Lungs - clear to auscultation Abdomen - Distended, Firm, non-tender. Bowel Sounds normal. Extremities- no calf swelling/tenderness. Laboratory Results - last 24 hr 05/02/19 05/02/19 05/03/19 15:59 22:13 05:49 WBC 17.8 H RBC 3.20 L Hgb 8.8 L Hct 27.0 L MCV 84.3 MCH 27.4 MCHC 32.5 RDW 16.1 H Plt Count 381 MPV 8.0 Absolute Neuts (auto) Neutrophils % Lymphocytes % Monocytes % Eosinophils % Basophils % Nucleated RBC % Sodium Potassium Chloride Carbon Dioxide Anion Gap BUN Creatinine Est GFR (CKD-EPI)AfAm Est GFR (CKD-EPI)NonAf POC Glucometer 122 122 Random Glucose Calcium Total Bilirubin AST ALT Alkaline Phosphatase Total Protein Albumin Urine Color Urine Appearance Urine pH Ur Specific [place] Urine Protein Urine Glucose (UA) Urine Ketones Urine Blood Urine Nitrite Urine Bilirubin Urine Urobilinogen Ur Leukocyte Esterase Urine WBC (Auto) Urine RBC (Auto) Urine Casts (Auto) U Epithel Cells (Auto) Urine Bacteria (Auto) 05/03/19 05/03/19 05/03/19 07:10 07:10 12:10 WBC 14.2 H RBC 2.96 L Hgb 8.0 L Hct 25.0 L MCV 84.4 MCH 27.1 MCHC 32.1 RDW 16.3 H Plt Count 410 MPV 8.0 Absolute Neuts (auto) 10.2 H Neutrophils % 72.0 Lymphocytes % 16.7 Monocytes % 9.8 Eosinophils % 1.2 Basophils % 0.3 Nucleated RBC % 0 Sodium 136 Potassium 3.5 Chloride 99 Carbon Dioxide 30 Anion Gap 8 BUN 5.9 L Creatinine 0.5 L Est GFR (CKD-EPI)AfAm 127.17 Est GFR (CKD-EPI)NonAf 109.72 POC Glucometer 127 Random Glucose 121 H Calcium 8.3 L Total Bilirubin 0.6 AST 17 ALT 14 Alkaline Phosphatase 93 Total Protein 5.4 L Albumin 2.2 L Urine Color Urine Appearance Urine pH Ur Specific [place] Urine Protein Urine Glucose (UA) Urine Ketones Urine Blood Urine Nitrite Urine Bilirubin Urine Urobilinogen Ur Leukocyte Esterase Urine WBC (Auto) Urine RBC (Auto) Urine Casts (Auto) U Epithel Cells (Auto) Urine Bacteria (Auto) 05/03/19 15:21 WBC RBC Hgb Hct MCV MCH MCHC RDW Plt Count MPV Absolute Neuts (auto) Neutrophils % Lymphocytes % Monocytes % Eosinophils % Basophils % Nucleated RBC % Sodium Potassium Chloride Carbon Dioxide Anion Gap BUN Creatinine Est GFR (CKD-EPI)AfAm Est GFR (CKD-EPI)NonAf POC Glucometer Random Glucose Calcium Total Bilirubin AST ALT Alkaline Phosphatase Total Protein Albumin Urine Color Dk yellow Urine Appearance Cloudy Urine pH 5.5 Ur Specific [place] 1.028 Urine Protein 1+ H Urine Glucose (UA) Negative Urine Ketones 1+ H Urine Blood Negative Urine Nitrite Positive H Urine Bilirubin 1+ H Urine Urobilinogen 1.0 Ur Leukocyte Esterase 1+ H Urine WBC (Auto) 39 Urine RBC (Auto) 2 Urine Casts (Auto) 188 U Epithel Cells (Auto) 8.0 Urine Bacteria (Auto) 5261.5 Current Medications Generic Name Dose Route Start Last Admin Trade Name Donteq PRN Reason Stop Dose Admin Acetaminophen 1,000 mg 05/01/19 18:36 05/02/19 04:04 Ofirmev Injection - IVPB 1,000 mg Q6H PRN Administration FEVER Acetaminophen 650 mg 05/03/19 14:53 Tylenol - PO Q6H PRN PAIN LEVEL 4 - 6 Albuterol Sulfate 2 puff 05/01/19 18:36 Ventolin Hfa Inhaler - IH Q4H PRN ASTHMA Dexamethasone Sodium Phosphate 4 mg 05/01/19 18:36 Decadron Injection - IVPUSH ONCE PRN NAUSEA AND/OR VOMITING Diazepam 5 mg 05/01/19 22:00 05/03/19 13:19 Valium - PO 5 mg TID ANDREW Administration Diphenhydramine HCl 12.5 mg 05/01/19 18:36 Benadryl Injection - IVPUSH ONCE PRN FOR ITCHING Docusate Sodium 100 mg 05/02/19 08:00 05/03/19 13:19 Colace - PO 100 mg TID ANDREW Administration Fluoxetine HCl 20 mg 05/02/19 10:00 05/03/19 11:07 Prozac - PO 20 mg DAILY ANDREW Administration Insulin Aspart 1 vial 05/01/19 22:00 05/03/19 12:19 Novolog Vial Sliding Scale - SQ Not Given ACHS [facility] Protocol Ondansetron HCl 4 mg 05/01/19 18:36 05/02/19 13:40 Zofran Injection IVPUSH 4 mg Q4H PRN Administration NAUSEA AND/OR VOMITING Oxycodone HCl 5 mg 05/03/19 14:54 Roxicodone - PO Q4H PRN PAIN LEVEL 7 - 10 Polyethylene Glycol 17 gm 05/02/19 10:00 05/03/19 11:07 Miralax (For Daily Use) - PO 17 grams DAILY ANDREW Administration Promethazine HCl 12.5 mg 05/01/19 18:36 Phenergan Injection - IVPB Q6H PRN NAUSEA AND/OR VOMITING Senna 2 tab 05/02/19 22:00 05/02/19 22:51 Senna - PO 2 tab HS ANDREW Administration Valacyclovir HCl 500 mg 05/03/19 12:00 05/03/19 13:19 Valtrex - PO 500 mg BID ANDREW Administration Verapamil HCl 40 mg 05/02/19 10:00 05/03/19 11:08 Calan - PO 40 mg DAILY ANDREW Administration Home Medications Medication Instructions Recorded Aspirin 81 mg PO DAILY 04/24/19 Cyclobenzaprine HCl 10 mg PO DAILY 04/24/19 Fluoxetine HCl [Prozac] 20 mg PO DAILY 04/24/19 Gabapentin 100 mg PO TID 04/24/19 Liraglutide [Victoza -] 1.8 mg SQ DAILY 04/24/19 Omeprazole 20 mg PO DAILY 04/24/19 Verapamil HCl 40 mg PO DAILY 04/24/19 metFORMIN HCL [Metformin HCl] 500 mg PO BID 04/24/19 Albuterol Sulfate Inhaler - 2 inh PO Q4H PRN 04/29/19 [Ventolin Hfa Inhaler -] ASSESSMENT AND PLAN: 54 year old woman with a history of HTN, DM 2, Depression, PTSD, GERD, lumbar spinal stenosis with radiculopathy and neurogenic claudication, admitted for lumbar spine surgery. 1. DJD Spine/Lumbar spinal stenosis with radiculopathy and neurogenic claudication s/p L4, L5, S1 bilateral laminectomies & osteotomies (facetectomies ); L4-L5, L5-S1 posterior lumbar interbody fusion; L4-S1 posterior instrumentation; L4-S1 posterolateral arthrodesis; bone allograft; bone autograft; bone marrow aspiration; complex wound closure (20cm) on 04/29 POD 4 Fevers ? etiology - no clear infective focus. UCX/Blood Cx pending Seen by ID - recommend observation off Abx. CXR - no acute findings Incentive Spirometry, PT. Leukocytosis improving. Oxycodone/Valium for pain management. Bowel regimen including Miralax. If necessary, will add MOM PRN. 2. Oral Herpes Simplex - Valtex as per ID 3. DM 2 - Novolog sliding scale. 4. HTN - Continue Verapamil. 5. Depression/PTSD - Continue Prosac, Valium DVT Px - As per Ortho
[2019-05-03] MEDS ORDERED: MAGNESIUM HYDROX 2400MG/30ML ORAL SUSPENSION 30 ML CUP PO PRN (18:29)
[2019-05-03] MEDS: ACETAMINOPHEN 1000 MG/100 ML VIAL (NON FORMULARY) IVPB PRN (20:10)
[2019-05-03] MEDS: SENNOSIDES 8.6MG TABLET (FP) PO SCH (21:15)
[2019-05-04] MEDS: oxyCODONE HCL 5 MG TABLET PO PRN ×4 (01:57→17:55)
[2019-05-04] MEDS: DOCUSATE SODIUM 100 MG CAPSULE (FP) PO SCH ×3 (06:16→22:16)
[2019-05-04] MEDS: INSULIN SLIDING SCALE (NOVOLOG) 1 VIAL SQ SCH ×4 (06:16→21:57)
[2019-05-04] MEDS: diazePAM 5 MG TABLET PO SCH ×3 (06:16→22:16)
[2019-05-04 09:38] LABS: BASO % 0.4 % (0-2.0); EOS % 2.4 % (0-4.5); HEMATOCRIT 25.4 % (32.4-45.2); HEMOGLOBIN 8.2 GM/dL (10.7-15.3); LYMPH % 24.4 % (8-40); MCH 27.4 pg (25.7-33.7); MCHC 32.1 g/dl (32.0-36.0); MEAN CELL VOLUME 85.2 fl (80-96); MEAN PLT VOLUME 7.8 fl (7.5-11.1); NEUT % 61.8 % (42.8-82.8); PLATELET COUNT 493 K/MM3 (134-434); RBC 2.98 M/mm3 (3.60-5.2); RDW 16.1 % (11.6-15.6); WHITE BLOOD COUNT 11.7 K/mm3 (4.0-10.0)
[2019-05-04 10:07] LABS: BLOOD UREA NITROGEN 5.1 mg/dL (7-18); CALCIUM 8.1 mg/dL (8.5-10.1); CREATININE 0.7 mg/dL (0.55-1.3); POTASSIUM 3.7 mmol/L (3.5-5.1)
[2019-05-04] MEDS ORDERED: PT OWN MED DRAWER 7, Y5N ONE (10:44)
[2019-05-04] MEDS: VERAPAMIL HCL 40 MG TABLET (FP) PO SCH (10:51)
[2019-05-04] MEDS: valACYclovir HCL 500 MG TABLET (FP) PO SCH ×2 (10:51→22:16)
[2019-05-04] MEDS: FLUoxetine HCL 20 MG CAPSULE (FP) PO SCH (10:51)
[2019-05-04] MEDS: POLYETHYLENE GLYCOL 3350 119 GM BTL PO SCH (10:51)
--- NOTE | 2019-05-04 15:54 | PN ---
Teaching Attending Note Name of Resident: Noah Trejo ATTENDING PHYSICIAN STATEMENT I saw and evaluated the patient. I reviewed the resident's note and discussed the case with the resident. I agree with the resident's findings and plan as documented. SUBJECTIVE: Pain/mobility increasing. BM x 2 yesterday. Afebrile overnight - no cough/sputum/dysuria/diarrhea. OBJECTIVE: Tmax 100.4 12/6 @ 2am, HR 118 Last Vital Signs Temp Pulse Resp BP Pulse Ox 99.1 F 112 H 20 122/73 98 05/04/19 14:00 05/04/19 14:00 05/04/19 14:00 05/04/19 14:00 05/03/19 22:00 HEENT - Atraumatic, Normocephalic. DARREL. Herpetic lesion on upper lip. Heart- S1, S2, RRR Lungs - clear to auscultation Abdomen - Distended, Firm, non-tender. Bowel Sounds normal. Extremities - no calf swelling/tenderness. Laboratory Results - last 24 hr 05/03/19 05/03/19 05/03/19 15:21 17:26 20:37 WBC RBC Hgb Hct MCV MCH MCHC RDW Plt Count MPV Absolute Neuts (auto) Neutrophils % Lymphocytes % Monocytes % Eosinophils % Basophils % Nucleated RBC % Sodium Potassium Chloride Carbon Dioxide Anion Gap BUN Creatinine Est GFR (CKD-EPI)AfAm Est GFR (CKD-EPI)NonAf POC Glucometer 176 133 Random Glucose Calcium Urine Color Dk yellow Urine Appearance Cloudy Urine pH 5.5 Ur Specific [place] 1.028 Urine Protein 1+ H Urine Glucose (UA) Negative Urine Ketones 1+ H Urine Blood Negative Urine Nitrite Positive H Urine Bilirubin 1+ H Urine Urobilinogen 1.0 Ur Leukocyte Esterase 1+ H Urine WBC (Auto) 39 Urine RBC (Auto) 2 Urine Casts (Auto) 188 U Pathogenic Cast Auto 0-2 U Epithel Cells (Auto) 8.0 Urine Bacteria (Auto) 5261.5 05/04/19 05/04/19 05/04/19 06:14 08:50 08:50 WBC 11.7 H RBC 2.98 L Hgb 8.2 L Hct 25.4 L MCV 85.2 MCH 27.4 MCHC 32.1 RDW 16.1 H Plt Count 493 H D MPV 7.8 Absolute Neuts (auto) 7.2 Neutrophils % 61.8 Lymphocytes % 24.4 D Monocytes % 11.0 H Eosinophils % 2.4 D Basophils % 0.4 Nucleated RBC % 0 Sodium 137 Potassium 3.7 Chloride 97 L Carbon Dioxide 32 Anion Gap 9 BUN 5.1 L Creatinine 0.7 Est GFR (CKD-EPI)AfAm 113.84 Est GFR (CKD-EPI)NonAf 98.23 POC Glucometer 132 Random Glucose 151 H Calcium 8.1 L Urine Color Urine Appearance Urine pH Ur Specific [place] Urine Protein Urine Glucose (UA) Urine Ketones Urine Blood Urine Nitrite Urine Bilirubin Urine Urobilinogen Ur Leukocyte Esterase Urine WBC (Auto) Urine RBC (Auto) Urine Casts (Auto) U Pathogenic Cast Auto U Epithel Cells (Auto) Urine Bacteria (Auto) 05/04/19 11:55 WBC RBC Hgb Hct MCV MCH MCHC RDW Plt Count MPV Absolute Neuts (auto) Neutrophils % Lymphocytes % Monocytes % Eosinophils % Basophils % Nucleated RBC % Sodium Potassium Chloride Carbon Dioxide Anion Gap BUN Creatinine Est GFR (CKD-EPI)AfAm Est GFR (CKD-EPI)NonAf POC Glucometer 150 Random Glucose Calcium Urine Color Urine Appearance Urine pH Ur Specific [place] Urine Protein Urine Glucose (UA) Urine Ketones Urine Blood Urine Nitrite Urine Bilirubin Urine Urobilinogen Ur Leukocyte Esterase Urine WBC (Auto) Urine RBC (Auto) Urine Casts (Auto) U Pathogenic Cast Auto U Epithel Cells (Auto) Urine Bacteria (Auto) Current Medications Generic Name Dose Route Start Last Admin Trade Name Freq PRN Reason Stop Dose Admin Acetaminophen 650 mg 05/03/19 14:53 Tylenol - PO Q6H PRN PAIN LEVEL 4 - 6 Albuterol Sulfate 2 puff 05/01/19 18:36 Ventolin Hfa Inhaler - IH Q4H PRN ASTHMA Diazepam 5 mg 05/01/19 22:00 05/04/19 13:16 Valium - PO 5 mg TID ANDREW Administration Diphenhydramine HCl 12.5 mg 05/01/19 18:36 Benadryl Injection - IVPUSH ONCE PRN FOR ITCHING Docusate Sodium 100 mg 05/02/19 08:00 05/04/19 13:16 Colace - PO 100 mg TID ANDREW Administration Fluoxetine HCl 20 mg 05/02/19 10:00 05/04/19 10:51 Prozac - PO 20 mg DAILY ANDREW Administration Insulin Aspart 1 vial 05/01/19 22:00 05/04/19 12:28 Novolog Vial Sliding Scale - SQ Not Given ACHS [facility] Protocol Magnesium Hydroxide 30 ml 05/03/19 18:29 05/03/19 23:55 Milk Of Magnesia - PO 30 ml PRN PRN Administration CONSTIPATION Ondansetron HCl 4 mg 05/01/19 18:36 05/02/19 13:40 Zofran Injection IVPUSH 4 mg Q4H PRN Administration NAUSEA AND/OR VOMITING Oxycodone HCl 5 mg 05/03/19 14:54 05/04/19 12:29 Roxicodone - PO 5 mg Q4H PRN Administration PAIN LEVEL 7 - 10 Polyethylene Glycol 17 gm 05/02/19 10:00 05/04/19 10:51 Miralax (For Daily Use) - PO Not Given DAILY ANDREW Promethazine HCl 12.5 mg 05/01/19 18:36 Phenergan Injection - IVPB Q6H PRN NAUSEA AND/OR VOMITING Senna 2 tab 05/02/19 22:00 05/03/19 21:15 Senna - PO 2 tab HS ANDREW Administration Valacyclovir HCl 500 mg 05/03/19 12:00 05/04/19 10:51 Valtrex - PO 500 mg BID ANDREW Administration Verapamil HCl 40 mg 05/02/19 10:00 05/04/19 10:51 Calan - PO 40 mg DAILY ANDREW Administration Home Medications Medication Instructions Recorded Aspirin 81 mg PO DAILY 04/24/19 Cyclobenzaprine HCl 10 mg PO DAILY 04/24/19 Fluoxetine HCl [Prozac] 20 mg PO DAILY 04/24/19 Gabapentin 100 mg PO TID 04/24/19 Liraglutide [Victoza -] 1.8 mg SQ DAILY 04/24/19 Omeprazole 20 mg PO DAILY 04/24/19 Verapamil HCl 40 mg PO DAILY 04/24/19 metFORMIN HCL [Metformin HCl] 500 mg PO BID 04/24/19 Albuterol Sulfate Inhaler - 2 inh PO Q4H PRN 04/29/19 [Ventolin Hfa Inhaler -] ASSESSMENT AND PLAN: 54 year old woman with a history of HTN, DM 2, Depression, PTSD, GERD, lumbar spinal stenosis with radiculopathy and neurogenic claudication, admitted for lumbar spine surgery. 1. DJD Spine/Lumbar spinal stenosis with radiculopathy and neurogenic claudication s/p L4, L5, S1 bilateral laminectomies & osteotomies (facetectomies ); L4-L5, L5-S1 posterior lumbar interbody fusion; L4-S1 posterior instrumentation; L4-S1 posterolateral arthrodesis; bone allograft; bone autograft; bone marrow aspiration; complex wound closure (20cm) on / POD 5 Post-op fevers resolved. Urine/Blood Cx neg. Seen by ID - recommend observation off Abx. CXR - no acute findings Incentive Spirometry, PT. Leukocytosis improving. Oxycodone/Valium for pain management. Bowel regimen including Miralax. If necessary, will add MOM PRN. 2. Sinus Tacycardia, persistent ?sec to pain Adequately hydrated. Given post-op and poorly mobile status, will order CTA Chest to exclude PE 3. Oral Herpes Simplex - Valtex as per ID 4. DM 2 - Novolog sliding scale. 5. HTN - Continue Verapamil. 6. Depression/PTSD - Continue Prosac, Valium DVT Px - As per Ortho
--- NOTE | 2019-05-04 15:55 | PN ---
Physical Exam: SUBJECTIVE: Patient seen and examined at bedside. No acute events/fever overnight. OBJECTIVE: Vital Signs Period Temp Pulse Resp BP Sys/Ayoub Pulse Ox Last 24 Hr 98.1 F-99.3 F 111-118 18-55 117-130/70-87 98-98 GENERAL: NAD HEAD: Normal with no signs of trauma. EYES: EOMi Sclera Clear ENT: Herpes Lesion lower right side lip. NECK: Trachea midline, full range of motion, supple. LUNGS: CTA b/l. HEART: Tachycardic S1S2 ABDOMEN: Soft, nontender, nondistended EXTREMITIES: 2+ pulses, warm, well-perfused, no edema. NEUROLOGICAL: Cranial nerves II through XII grossly intact. Normal speech PSYCH: Normal mood, normal affect. Laboratory Results - last 24 hr 05/03/19 05/03/19 05/03/19 15:21 17:26 20:37 WBC RBC Hgb Hct MCV MCH MCHC RDW Plt Count MPV Absolute Neuts (auto) Neutrophils % Lymphocytes % Monocytes % Eosinophils % Basophils % Nucleated RBC % Sodium Potassium Chloride Carbon Dioxide Anion Gap BUN Creatinine Est GFR (CKD-EPI)AfAm Est GFR (CKD-EPI)NonAf POC Glucometer 176 133 Random Glucose Calcium Urine Color Dk yellow Urine Appearance Cloudy Urine pH 5.5 Ur Specific Teague 1.028 Urine Protein 1+ H Urine Glucose (UA) Negative Urine Ketones 1+ H Urine Blood Negative Urine Nitrite Positive H Urine Bilirubin 1+ H Urine Urobilinogen 1.0 Ur Leukocyte Esterase 1+ H Urine WBC (Auto) 39 Urine RBC (Auto) 2 Urine Casts (Auto) 188 U Pathogenic Cast Auto 0-2 U Epithel Cells (Auto) 8.0 Urine Bacteria (Auto) 5261.5 05/04/19 05/04/19 05/04/19 06:14 08:50 08:50 WBC 11.7 H RBC 2.98 L Hgb 8.2 L Hct 25.4 L MCV 85.2 MCH 27.4 MCHC 32.1 RDW 16.1 H Plt Count 493 H D MPV 7.8 Absolute Neuts (auto) 7.2 Neutrophils % 61.8 Lymphocytes % 24.4 D Monocytes % 11.0 H Eosinophils % 2.4 D Basophils % 0.4 Nucleated RBC % 0 Sodium 137 Potassium 3.7 Chloride 97 L Carbon Dioxide 32 Anion Gap 9 BUN 5.1 L Creatinine 0.7 Est GFR (CKD-EPI)AfAm 113.84 Est GFR (CKD-EPI)NonAf 98.23 POC Glucometer 132 Random Glucose 151 H Calcium 8.1 L Urine Color Urine Appearance Urine pH Ur Specific Teague Urine Protein Urine Glucose (UA) Urine Ketones Urine Blood Urine Nitrite Urine Bilirubin Urine Urobilinogen Ur Leukocyte Esterase Urine WBC (Auto) Urine RBC (Auto) Urine Casts (Auto) U Pathogenic Cast Auto U Epithel Cells (Auto) Urine Bacteria (Auto) 05/04/19 11:55 WBC RBC Hgb Hct MCV MCH MCHC RDW Plt Count MPV Absolute Neuts (auto) Neutrophils % Lymphocytes % Monocytes % Eosinophils % Basophils % Nucleated RBC % Sodium Potassium Chloride Carbon Dioxide Anion Gap BUN Creatinine Est GFR (CKD-EPI)AfAm Est GFR (CKD-EPI)NonAf POC Glucometer 150 Random Glucose Calcium Urine Color Urine Appearance Urine pH Ur Specific Teague Urine Protein Urine Glucose (UA) Urine Ketones Urine Blood Urine Nitrite Urine Bilirubin Urine Urobilinogen Ur Leukocyte Esterase Urine WBC (Auto) Urine RBC (Auto) Urine Casts (Auto) U Pathogenic Cast Auto U Epithel Cells (Auto) Urine Bacteria (Auto) Active Medications Generic Name Dose Route Start Last Admin Trade Name Freq PRN Reason Stop Dose Admin Acetaminophen 650 mg 05/03/19 14:53 Tylenol - PO Q6H PRN PAIN LEVEL 4 - 6 Albuterol Sulfate 2 puff 05/01/19 18:36 Ventolin Hfa Inhaler - IH Q4H PRN ASTHMA Diazepam 5 mg 05/01/19 22:00 05/04/19 13:16 Valium - PO 5 mg TID ANDREW Administration Diphenhydramine HCl 12.5 mg 05/01/19 18:36 Benadryl Injection - IVPUSH ONCE PRN FOR ITCHING Docusate Sodium 100 mg 05/02/19 08:00 05/04/19 13:16 Colace - PO 100 mg TID ANDREW Administration Fluoxetine HCl 20 mg 05/02/19 10:00 05/04/19 10:51 Prozac - PO 20 mg DAILY ANDREW Administration Insulin Aspart 1 vial 05/01/19 22:00 05/04/19 12:28 Novolog Vial Sliding Scale - SQ Not Given ACHS ANDREW Protocol Magnesium Hydroxide 30 ml 05/03/19 18:29 05/03/19 23:55 Milk Of Magnesia - PO 30 ml PRN PRN Administration CONSTIPATION Ondansetron HCl 4 mg 05/01/19 18:36 05/02/19 13:40 Zofran Injection IVPUSH 4 mg Q4H PRN Administration NAUSEA AND/OR VOMITING Oxycodone HCl 5 mg 05/03/19 14:54 05/04/19 12:29 Roxicodone - PO 5 mg Q4H PRN Administration PAIN LEVEL 7 - 10 Polyethylene Glycol 17 gm 05/02/19 10:00 05/04/19 10:51 Miralax (For Daily Use) - PO Not Given DAILY ANDREW Promethazine HCl 12.5 mg 05/01/19 18:36 Phenergan Injection - IVPB Q6H PRN NAUSEA AND/OR VOMITING Senna 2 tab 05/02/19 22:00 05/03/19 21:15 Senna - PO 2 tab HS ANDREW Administration Valacyclovir HCl 500 mg 05/03/19 12:00 05/04/19 10:51 Valtrex - PO 500 mg BID ANDREW Administration Verapamil HCl 40 mg 05/02/19 10:00 05/04/19 10:51 Calan - PO 40 mg DAILY ANDREW Administration ASSESSMENT/PLAN: 54 F PMH of HTn, NIDDM, Depression, PTSD, GERD who is POD #5 from L4-L5, L5-S1 b /l laminectomy; b/l L4-L5, L5-S1 facetectomies; L4-L5, L5-S1 PLIF w/ L4-S1 posterior instrumented spinal fusion. 1)POD #5 Laminectomies -Oxycodone 5mg PO Q4H PRN -Senna and glycerin suppositories PRN -Unable to ambulate with Physical therapy -no heavy lifting (>5 lbs), bending, twisting for 6 months post op -Incentive spirometry -Dr. Moise for further pain management. -Drain D/C'd #Sinus Tach possibly 2/2 pain -Given pt obese and recently post op as well as immobile, will order CTA chest to r/o PE. 2)Fever -Fever spike of 100.4 yesterday -Blood cultures neg -F/U urine culture- lactose fermenting gram negative 3)DM -Sliding scale 4) HSV -Valcyclovir 500 mg BID PO 4)PTSD/Depression -Prozac 20mg PO Daily -Valium 5 mg PO TID 5)HTN -Continue Verapamil 40 mg PO Daily 6) GERD -Protonix 40 mg PO Daily DVT Prophylaxis: SCDs F: LR @ 100 E: Monitor CMP N: Full Liquid Dispo: med-surg Visit type - Emergency Visit Emergency Visit: Yes ED Registration Date: 04/29/19 Care time: The patient presented to the Emergency Department on the above date and was hospitalized for further evaluation of their emergent condition. - New Patient This patient is new to me today: No - Critical Care Critical Care patient: No - Discharge Referral Referred to [facility] Med P.C[facility] No ATTENDING PHYSICIAN STATEMENT I saw and evaluated the patient. I reviewed the resident's note and discussed the case with the resident. I agree with the resident's findings and plan as documented. SUBJECTIVE: OBJECTIVE: ASSESSMENT AND PLAN:
[2019-05-04] MEDS: SENNOSIDES 8.6MG TABLET (FP) PO SCH (22:15)
[2019-05-05] MEDS: DOCUSATE SODIUM 100 MG CAPSULE (FP) PO SCH ×3 (06:18→21:36)
[2019-05-05] MEDS: diazePAM 5 MG TABLET PO SCH ×3 (06:18→21:40)
[2019-05-05] MEDS: INSULIN SLIDING SCALE (NOVOLOG) 1 VIAL SQ SCH ×4 (06:18→21:35)
[2019-05-05] MEDS: FLUoxetine HCL 20 MG CAPSULE (FP) PO SCH (11:27)
[2019-05-05] MEDS: valACYclovir HCL 500 MG TABLET (FP) PO SCH ×2 (11:27→21:40)
[2019-05-05] MEDS: oxyCODONE HCL 5 MG TABLET PO PRN ×2 (11:27→21:39)
[2019-05-05] MEDS: POLYETHYLENE GLYCOL 3350 119 GM BTL PO SCH (11:29)
[2019-05-05] MEDS: VERAPAMIL HCL 40 MG TABLET (FP) PO SCH (11:29)
--- NOTE | 2019-05-05 19:06 | PN ---
Progress Note (short form) - Note Progress Note: SUBJECTIVE: Pain/mobility increasing. BM now loose after miralax. Afebrile overnight - no abdominal pain/nausea/vomiting/cough/sputum/dysuria/diarrhea. OBJECTIVE: Tmax 99.8, Hemodynamically Stable. Last Vital Signs Temp Pulse Resp BP Pulse Ox 99.7 F H 71 20 110/71 94 L 05/05/19 16:50 05/05/19 16:50 05/05/19 16:50 05/05/19 16:50 05/05/19 10:00 HEENT - Atraumatic, Normocephalic. DARREL. Herpetic lesion on upper lip. Heart- S1, S2, RRR Lungs - clear to auscultation Abdomen - Distended, Firm, non-tender. Bowel Sounds normal. Extremities - no calf swelling/tenderness. Laboratory Results - last 24 hr 05/04/19 05/05/19 05/05/19 20:52 06:17 11:34 POC Glucometer 180 138 123 05/05/19 17:59 POC Glucometer 135 Current Medications Generic Name Dose Route Start Last Admin Trade Name Freq PRN Reason Stop Dose Admin Acetaminophen 650 mg 05/03/19 14:53 Tylenol - PO Q6H PRN PAIN LEVEL 4 - 6 Albuterol Sulfate 2 puff 05/01/19 18:36 Ventolin Hfa Inhaler - IH Q4H PRN ASTHMA Diazepam 5 mg 05/01/19 22:00 05/05/19 13:29 Valium - PO 5 mg TID ANDREW Administration Diphenhydramine HCl 12.5 mg 05/01/19 18:36 Benadryl Injection - IVPUSH ONCE PRN FOR ITCHING Docusate Sodium 100 mg 05/02/19 08:00 05/05/19 15:56 Colace - PO Not Given TID ANDREW Fluoxetine HCl 20 mg 05/02/19 10:00 05/05/19 11:27 Prozac - PO 20 mg DAILY ANDREW Administration Insulin Aspart 1 vial 05/01/19 22:00 05/05/19 18:00 Novolog Vial Sliding Scale - SQ Not Given ACHS [facility] Protocol Magnesium Hydroxide 30 ml 05/03/19 18:29 05/03/19 23:55 Milk Of Magnesia - PO 30 ml PRN PRN Administration CONSTIPATION Ondansetron HCl 4 mg 05/01/19 18:36 05/02/19 13:40 Zofran Injection IVPUSH 4 mg Q4H PRN Administration NAUSEA AND/OR VOMITING Oxycodone HCl 5 mg 05/03/19 14:54 05/05/19 11:27 Roxicodone - PO 5 mg Q4H PRN Administration PAIN LEVEL 7 - 10 Polyethylene Glycol 17 gm 05/02/19 10:00 05/05/19 11:29 Miralax (For Daily Use) - PO Not Given DAILY ANDREW Promethazine HCl 12.5 mg 05/01/19 18:36 Phenergan Injection - IVPB Q6H PRN NAUSEA AND/OR VOMITING Senna 2 tab 05/02/19 22:00 05/04/19 22:15 Senna - PO 2 tab HS ANDREW Administration Valacyclovir HCl 500 mg 05/03/19 12:00 05/05/19 11:27 Valtrex - PO 500 mg BID ANDREW Administration Verapamil HCl 40 mg 05/02/19 10:00 05/05/19 11:29 Calan - PO 40 mg DAILY ANDREW Administration Home Medications Medication Instructions Recorded Aspirin 81 mg PO DAILY 04/24/19 Cyclobenzaprine HCl 10 mg PO DAILY 04/24/19 Fluoxetine HCl [Prozac] 20 mg PO DAILY 04/24/19 Gabapentin 100 mg PO TID 04/24/19 Liraglutide [Victoza -] 1.8 mg SQ DAILY 04/24/19 Omeprazole 20 mg PO DAILY 04/24/19 Verapamil HCl 40 mg PO DAILY 04/24/19 metFORMIN HCL [Metformin HCl] 500 mg PO BID 04/24/19 Albuterol Sulfate Inhaler - 2 inh PO Q4H PRN 04/29/19 [Ventolin Hfa Inhaler -] ASSESSMENT AND PLAN: 54 year old woman with a history of HTN, DM 2, Depression, PTSD, GERD, lumbar spinal stenosis with radiculopathy and neurogenic claudication, admitted for lumbar spine surgery. 1. DJD Spine/Lumbar spinal stenosis with radiculopathy and neurogenic claudication s/p L4, L5, S1 bilateral laminectomies & osteotomies (facetectomies ); L4-L5, L5-S1 posterior lumbar interbody fusion; L4-S1 posterior instrumentation; L4-S1 posterolateral arthrodesis; bone allograft; bone autograft; bone marrow aspiration; complex wound closure (20cm) on 04/29 POD 6 Post-op fevers resolved. Urine/Blood Cx neg. Seen by ID - recommend observation off Abx. CXR - no acute findings Incentive Spirometry, PT. Leukocytosis improving. Oxycodone/Valium for pain management. Bowel regimen including Miralax started 05/03 due to constipation, now loose stool. Miralax held. 2. Sinus Tacycardia, persistent ?sec to pain, now improving Adequately hydrated. CTA Chest was done 05/04 given post-op state and poorly mobile status - prelim verbal read - negative for PE, awaiting official report. 3. Oral Herpes Simplex - Valtex as per ID 4. DM 2 - Novolog sliding scale. 5. HTN - Continue Verapamil. 6. Depression/PTSD - Continue Prosac, Valium DVT Px - As per Ortho Dispo - as per Ortho/PT/Case Management Visit type - Emergency Visit Emergency Visit: No - New Patient This patient is new to me today: No - Critical Care Critical Care patient: No - Discharge Referral Referred to [facility] Med P.C.: No
[2019-05-05] MEDS: SENNOSIDES 8.6MG TABLET (FP) PO SCH (21:36)
[2019-05-06] MEDS: INSULIN SLIDING SCALE (NOVOLOG) 1 VIAL SQ SCH ×3 (06:27→17:13)
[2019-05-06] MEDS: DOCUSATE SODIUM 100 MG CAPSULE (FP) PO SCH ×2 (06:27→14:29)
[2019-05-06] MEDS: diazePAM 5 MG TABLET PO SCH (06:27)
[2019-05-06] MEDS ORDERED: PT OWN MED DRAWER 7, Y5N ONE (09:26)
[2019-05-06] MEDS ORDERED: TIZANIDINE HCL 2 MG TABLET PO PRN (09:35)
[2019-05-06] MEDS: POLYETHYLENE GLYCOL 3350 119 GM BTL PO SCH (09:36)
[2019-05-06] MEDS: valACYclovir HCL 500 MG TABLET (FP) PO SCH (09:37)
[2019-05-06] MEDS: FLUoxetine HCL 20 MG CAPSULE (FP) PO SCH (09:37)
[2019-05-06] MEDS: VERAPAMIL HCL 40 MG TABLET (FP) PO SCH (09:37)
[2019-05-06 11:16] LABS: BASO % 0.4 % (0-2.0); EOS % 2.6 % (0-4.5); HEMATOCRIT 23.6 % (32.4-45.2); HEMOGLOBIN 7.6 GM/dL (10.7-15.3); LYMPH % 17.8 % (8-40); MCH 27.3 pg (25.7-33.7); MCHC 32.2 g/dl (32.0-36.0); MEAN CELL VOLUME 84.8 fl (80-96); MEAN PLT VOLUME 7.7 fl (7.5-11.1); MONO % 10.3 % (3.8-10.2); NEUT % 68.9 % (42.8-82.8); PLATELET COUNT 534 K/MM3 (134-434); RBC 2.78 M/mm3 (3.60-5.2); RDW 16.1 % (11.6-15.6); WHITE BLOOD COUNT 12.8 K/mm3 (4.0-10.0)
[2019-05-06] MEDS: oxyCODONE HCL 5 MG TABLET PO PRN (11:23)
[2019-05-06 11:49] LABS: BLOOD UREA NITROGEN 7.1 mg/dL (7-18); CALCIUM 8.2 mg/dL (8.5-10.1); CREATININE 0.4 mg/dL (0.55-1.3); POTASSIUM 3.5 mmol/L (3.5-5.1)
--- NOTE | 2019-05-06 15:40 | PN ---
Teaching Attending Note Name of Resident: Ana Nelson ATTENDING PHYSICIAN STATEMENT I saw and evaluated the patient. I reviewed the resident's note and discussed the case with the resident. I agree with the resident's findings and plan as documented with exceptions below. SUBJECTIVE: Patient seen and examined. pain better, right leg spasms, overall unchanged. Multiple loose stools, no urinary symptoms, dyspnea or GERD like symptoms. OBJECTIVE: Vital Signs Period Temp Pulse Resp BP Sys/Ayoub Pulse Ox Last 24 Hr 98.4 F-99.7 F 71-114 20-20 110-128/64-72 95 Intake & Output 05/03/19 05/04/19 05/05/19 05/06/19 23:59 23:59 23:59 23:59 Intake Total 1525 400 300 Output Total 400 Balance 1125 400 300 Weight 196 lb 1.6 oz 198 lb 1.6 oz 195 lb 7 oz 196 lb 3.2 oz General: sitting in bed in no acute distress chest: no rales or wheezing AbdomenL soft, obese, NT, pos bowel sounds extermities: no edema, or calf tenderness Home Medications Medication Instructions Recorded Fluoxetine HCl [Prozac] 20 mg PO DAILY 04/24/19 Gabapentin 100 mg PO TID 04/24/19 Liraglutide [Victoza -] 1.8 mg SQ DAILY 04/24/19 Verapamil HCl 40 mg PO DAILY 04/24/19 metFORMIN HCL [Metformin HCl] 500 mg PO BID 04/24/19 Amlodipine Besylate [Norvasc -] 5 mg PO DAILY 05/06/19 Docusate Sodium [Colace -] 100 mg PO TID capsule 05/06/19 Insulin Sliding Scale [Novolog 1 vial SQ ACHS units 05/06/19 Vial Sliding Scale -] Magnesium Hydrox 2400MG/30Ml [Milk 30 ml PO PRN PRN cup 05/06/19 of Magnesia -] Polyethylene Glycol 3350 [Miralax 17 gm PO DAILY PRN #1 bottle 05/06/19 119 gm Btl -] Ranitidine HCl 300 mg PO DAILY 05/06/19 Sennosides [Senna -] 2 tab PO HS PRN #1 tablet 05/06/19 Tizanidine HCl 2 mg PO Q8H PRN tablet 05/06/19 Valacyclovir HCl [Valtrex -] 500 mg PO BID #9 tablet 05/06/19 oxyCODONE HCL [Roxicodone -] 5 mg PO Q4H PRN tablet MDD 30 05/06/19 Laboratory Results - last 24 hr 05/05/19 05/05/19 05/06/19 17:59 21:35 06:26 WBC RBC Hgb Hct MCV MCH MCHC RDW Plt Count MPV Absolute Neuts (auto) Neutrophils % Lymphocytes % Monocytes % Eosinophils % Basophils % Nucleated RBC % Sodium Potassium Chloride Carbon Dioxide Anion Gap BUN Creatinine Est GFR (CKD-EPI)AfAm Est GFR (CKD-EPI)NonAf POC Glucometer 135 114 123 Random Glucose Calcium 05/06/19 05/06/19 05/06/19 10:30 10:30 12:35 WBC 12.8 H RBC 2.78 L Hgb 7.6 L Hct 23.6 L MCV 84.8 MCH 27.3 MCHC 32.2 RDW 16.1 H Plt Count 534 H MPV 7.7 Absolute Neuts (auto) 8.8 H Neutrophils % 68.9 Lymphocytes % 17.8 D Monocytes % 10.3 H Eosinophils % 2.6 Basophils % 0.4 Nucleated RBC % 0 Sodium 136 Potassium 3.5 Chloride 97 L Carbon Dioxide 31 Anion Gap 8 BUN 7.1 Creatinine 0.4 L Est GFR (CKD-EPI)AfAm 136.86 Est GFR (CKD-EPI)NonAf 118.08 POC Glucometer 160 Random Glucose 141 H Calcium 8.2 L Microbiology 05/03/19 09:00 Blood - Peripheral Venous Blood Culture - Preliminary NO GROWTH OBTAINED AFTER 72 HOURS, INCUBATION TO CONTINUE FOR 2 DAYS. 05/03/19 08:50 Blood - Peripheral Venous Blood Culture - Preliminary NO GROWTH OBTAINED AFTER 72 HOURS, INCUBATION TO CONTINUE FOR 2 DAYS. 05/01/19 17:46 Urine - Urine [place] Urine Culture - Final Escherichia Coli 54 year old woman with a history of HTN, type 2 DM, depression, PTSD, GERD, lumbar spinal stenosis with radiculopathy and neurogenic claudication who presented to the hospital for lumbar spine surgery. -Lumbar spinal stenosis with radiculopathy and neurogenic claudication s/p L4, L5, S1 bilateral laminectomies & osteotomies (facetectomies); L4-L5, L5-S1 posterior lumbar interbody fusion; L4-S1 posterior instrumentation; L4-S1 posterolateral arthrodesis; bone allograft; bone autograft; bone marrow aspiration; complex wound closure (20cm) on 04/29 -Post operative fevers, suspected atelectasis, resolved. -HTN -Type II DM -Depression/PTSD -GERD Plan: Tolerating diet, multiple BM after bowel regimen. Off [place], no concerns. Urine cx noted. ID input noted, No concerns off abx Fevers resolved, WBC normalized. valtrex for HSV CTA chest noted, no GERD concerns, outpatient follow up dc to SNF today with outpatient follow up with Dr. Moise, Discussed with patient and family at bedside in detail, all questions answered.
[2019-05-06 16:05] VITALS: BP 110/54; PULSE 67; TEMP 97.6
--- NOTE | 2019-05-06 16:26 | DS ---
Physical Exam: SUBJECTIVE: Patient seen and examined in the morning. No acute events overnight. No complaints of chest pain, no abdominal pain, no shortness of breath, no nausea, no vomiting. OBJECTIVE: Vital Signs Period Temp Pulse Resp BP Sys/Ayoub Pulse Ox Last 24 Hr 97.6 F-99.7 F 67-114 20-20 110-128/54-72 95 PHYSICAL EXAM GENERAL: The patient is awake, alert, and fully oriented, in no acute distress. HEAD: Normal with no signs of trauma. EYES: PERRL, extraocular movements intact, sclera anicteric, conjunctiva clear. ENT: Ears normal, nares patent, oropharynx clear without exudates, moist mucous membranes. NECK: Trachea midline, full range of motion, supple. LUNGS: Breath sounds equal, clear to auscultation bilaterally, no wheezes, no crackles, no accessory muscle use. HEART: Regular rate and rhythm, S1, S2 without murmur, rub or gallop. ABDOMEN: Soft, nontender, nondistended, normoactive bowel sounds, no guarding, no rebound, no hepatosplenomegaly, no masses. EXTREMITIES: 2+ pulses, warm, well-perfused, no edema. 4/5 strength b/l in the lower extremities. NEUROLOGICAL: Cranial nerves II through XII grossly intact. PSYCH: Normal mood, normal affect. SKIN: Warm, dry, normal turgor, no rashes or lesions noted. LABS Laboratory Results - last 24 hr 05/05/19 05/05/19 05/06/19 17:59 21:35 06:26 WBC RBC Hgb Hct MCV MCH MCHC RDW Plt Count MPV Absolute Neuts (auto) Neutrophils % Lymphocytes % Monocytes % Eosinophils % Basophils % Nucleated RBC % Sodium Potassium Chloride Carbon Dioxide Anion Gap BUN Creatinine Est GFR (CKD-EPI)AfAm Est GFR (CKD-EPI)NonAf POC Glucometer 135 114 123 Random Glucose Calcium 05/06/19 05/06/19 05/06/19 10:30 10:30 12:35 WBC 12.8 H RBC 2.78 L Hgb 7.6 L Hct 23.6 L MCV 84.8 MCH 27.3 MCHC 32.2 RDW 16.1 H Plt Count 534 H MPV 7.7 Absolute Neuts (auto) 8.8 H Neutrophils % 68.9 Lymphocytes % 17.8 D Monocytes % 10.3 H Eosinophils % 2.6 Basophils % 0.4 Nucleated RBC % 0 Sodium 136 Potassium 3.5 Chloride 97 L Carbon Dioxide 31 Anion Gap 8 BUN 7.1 Creatinine 0.4 L Est GFR (CKD-EPI)AfAm 136.86 Est GFR (CKD-EPI)NonAf 118.08 POC Glucometer 160 Random Glucose 141 H Calcium 8.2 L HOSPITAL COURSE: Date of Admission:04/29/19 Date of Discharge: 05/06/19 54 F PMH of HTn, NIDDM, Depression, PTSD, GERD who is POD #3 from L4-L5, L5-S1 b /l laminectomy; b/l L4-L5, L5-S1 facetectomies; L4-L5, L5-S1 PLIF w/ L4-S1 posterior instrumented spinal fusion. Patient had spikes of fever on post-op nights 1-3. Patient was cultured on POD #3. Blood cultures were negative, with urine culture positive. However patient had no urinary symptoms, so antibiotics were not started. Patient was afebrile after POD#4. Patient complained of left leg spasm, was started on valium and then switched to tizanidine after no alleviation of symptoms with valium. Patient was initially on [employer] pump, was then shifted to IV dilaudid and PO Oxycodone. Patient was discharged with recommendation to continue Oxycodone 5 mg PO PRN Q6H at rehab facility. Patient will restart home insulin regimen in the facility. Patient was noted to have herpes sores on her lips, was started on 7 day course of Valcyclovir 500 mg BID PO, which she will complete at facility. Patient instructed not to twist, not to lift heavy objects, and to follow up with Dr. Moise as outpatient within the next 7 days. Imaging done this admission: Lumbar Spine X-Ray: AP and lateral views of the LS spine posterior fusion L4-S1 with disc space replacements. There is a normal lordosis. There is a drain or tubing. There are some abdominal distention. Chest X-Ray: Impression: No acute chest pathology. Chest CT: No CT evidence of central pulmonary embolism. Evaluation of the peripheral pulmonary vasculature is limited due to motion artifact. No gross peripheral embolus is noted. Followup imaging as clinically indicated. Bibasilar discoid atelectasis, left more than right. The study images the upper abdomen. The partially imaged colon demonstrates at least moderate air-filled distention. Note is also made of a small amount of perihepatic and perisplenic free intraperitoneal fluid. Abdomen/pelvic CT may be performed. Mild concentric wall thickening is noted of the lower third of the thoracic esophagus possibly on the basis of esophagitis. Endoscopic evaluation may be considered. Small hiatal hernia Minutes to complete discharge: 30 Discharge Summary Problems reviewed: Yes Reason For Visit: SPINAL STENOSIS, LUMBAR REGION Current Active Problems Back pain (Chronic) S/P spinal fusion (Chronic) Condition: Improved - Instructions Diet, Activity, Other Instructions: You were admitted to the hospital because you had back surgery with bilateral laminectomy, facetectomy, and spinal fusion. You have been recovering in the ICU and now on a regular surgical floor in the hospital. You have been working with Physical Therapy to get back on your feet and to walk. You will continue your recovery from surgery at a rehab facility. Please do not to take any ibuprofen or motrin for pain management. You may use the pain medications as prescribed from your nursing facility as needed. To prevent blood clotting please only use TEDS and SCDs. Do not use heparin, lovenox or other chemical prophylaxis to prevent clotting unless approved by Dr. Moise. Medications: Please continue to take Valcyclovir 500 mg, by mouth, twice a day until . Please continue your pain medications as you have been taking them in the hospital. Please continue your home medications as directed. Referrals: Please follow up with Dr. Moise at [facility] [place] office. Call for your appointment at [phone]. Please follow up with your primary care physician, within the next few weeks to update them on your hospital stay and to continue your health maintenance. Special Instructions: NO BENDING, LIFTING (>5LBS), OR TWISTING FOR 9-12 MONTHS. Please do not to take any ibuprofen or motrin for pain management. To prevent blood clotting please only use TEDS and SCDs. Do not use heparin, lovenox or other chemical prophylaxis to prevent clotting till approved by Dr. Moise. Incentive spirometry 10 times every hour as able no driving, operating heavy machinery or taking important decisions alone while on narcotics, taper narcotics as symptoms improve and maintain high fiber diet and good bowel regimen while on narcotics. Do not take if dizzy, or drowsy. Referrals: Jarad Moise MD [Staff Physician] - 1 Week Disposition: RETIREMENT FACILITY - Home Medications Comprehensive Discharge Medication List: Ambulatory Orders Fluoxetine HCl [Prozac] 20 mg PO DAILY 04/24/19 Gabapentin 100 mg PO TID 04/24/19 Liraglutide [Victoza -] 1.8 mg SQ DAILY 04/24/19 Verapamil HCl 40 mg PO DAILY 04/24/19 metFORMIN HCL [Metformin HCl] 500 mg PO BID 04/24/19 Amlodipine Besylate [Norvasc -] 5 mg PO DAILY 05/06/19 Docusate Sodium [Colace -] 100 mg PO TID capsule 05/06/19 Insulin Sliding Scale [Novolog Vial Sliding Scale -] 1 vial SQ ACHS units 05/06 Magnesium Hydrox 2400MG/30Ml [Milk of Magnesia -] 30 ml PO PRN PRN cup Polyethylene Glycol 3350 [Miralax 119 gm Btl -] 17 gm PO DAILY PRN #1 bottle 02/14 Ranitidine HCl 300 mg PO DAILY 05/06/19 Sennosides [Senna -] 2 tab PO HS PRN #1 tablet 05/06/19 Tizanidine HCl 2 mg PO Q8H PRN tablet 05/06/19 Valacyclovir HCl [Valtrex -] 500 mg PO BID #9 tablet 05/06/19 oxyCODONE HCL [Roxicodone -] 5 mg PO Q4H PRN tablet MDD 30 05/06/19 This patient is new to me today: No Emergency Visit: Yes ED Registration Date: 04/29/19 Care time: The patient presented to the Emergency Department on the above date and was hospitalized for further evaluation of their emergent condition. Critical Care patient: No - Discharge Referral Referred to [facility] Med [facility]C.: No ATTENDING PHYSICIAN STATEMENT I saw and evaluated the patient. I reviewed the resident's note and discussed the case with the resident. I agree with the resident's findings and plan as documented. SUBJECTIVE: OBJECTIVE: ASSESSMENT AND PLAN:
== END 2019-05-06 17:53 | DRG 454 ==
LOC: JSAMEDAYSX 08:42 → JICU 23:12 → J8W 05-01 18:03
PROVIDERS: ADMIT Orthopaedic Surgery Orthopaedic Surgery of the Spine; ATTEND Hospitalist
PROC: 0SG00J1 Fusion of Lumbar Vertebral Joint with Synthetic Substitute, Posterior Approach, Posterior Column, Open Approach (ICD-10-PCS; 2019-04-29)
PROC: 0SB20ZZ Excision of Lumbar Vertebral Disc, Open Approach (ICD-10-PCS; 2019-04-29)
PROC: 0SB40ZZ Excision of Lumbosacral Disc, Open Approach (ICD-10-PCS; 2019-04-29)
PROC: 0SG30AJ Fusion of Lumbosacral Joint with Interbody Fusion Device, Posterior Approach, Anterior Column, Open Approach (ICD-10-PCS; 2019-04-29)
PROC: 0SG30J1 Fusion of Lumbosacral Joint with Synthetic Substitute, Posterior Approach, Posterior Column, Open Approach (ICD-10-PCS; 2019-04-29)
PROC: 01NB0ZZ Release Lumbar Nerve, Open Approach (ICD-10-PCS; 2019-04-29)
PROC: 07DR0ZZ Extraction of Iliac Bone Marrow, Open Approach (ICD-10-PCS; 2019-04-29)
PROC: B01BZZZ Fluoroscopy of Spinal Cord (ICD-10-PCS; 2019-04-29)
PROC: 4A11X4G Monitoring of Peripheral Nervous Electrical Activity, Intraoperative, External Approach (ICD-10-PCS; 2019-04-29)
PROC: 0SG00AJ Fusion of Lumbar Vertebral Joint with Interbody Fusion Device, Posterior Approach, Anterior Column, Open Approach (ICD-10-PCS; principal; 2019-04-29 12:00)
DX: M48.07 Spinal stenosis, lumbosacral region (principal); J98.11 Atelectasis; N39.0 Urinary tract infection, site not specified; M48.062 Spinal stenosis, lumbar region with neurogenic claudication; M54.16 Radiculopathy, lumbar region; F43.10 Post-traumatic stress disorder, unspecified; R50.82 Postprocedural fever; R00.0 Tachycardia, unspecified; D72.829 Elevated white blood cell count, unspecified; I10 Essential (primary) hypertension; E11.9 Type 2 diabetes mellitus without complications; F32.9 Major depressive disorder, single episode, unspecified; M53.2X7 Spinal instabilities, lumbosacral region; B00.9 Herpesviral infection, unspecified
CPT/HCPCS: 36415; 36600; 71045-TC-FY; 71275-TC; 72100-TC-FY; 76000-TC-FY; 80048; 80053; 81003; 82803; 82962; 83735; 84100; 84703; 85025; 85027; 86850; 86891; 86900; 86901; 87040; 87086; 87186; 88304-TC; 93005; 93010; 94760; 97116-GP; 97162-GP; J0131; J1644